=== PATIENT | female | born 1970 | race Caucasian/White ===

== ENCOUNTER 2022-08-05 13:17 | Inpatient (IN) | payer MEDICAID, SELFPAY ==
[2022-08-05 13:44] VITALS: BP 170/70; PULSE 105; RESP 23; TEMP 37.5; O2SAT 100; BMI 47.0
--- NOTE | 2022-08-05 16:12 | ED_ITS ---
HPI - General Adult General Chief complaint: Shortness of Breath/Dyspnea Stated complaint: water retention / Alcoholic Time Seen by Provider: 08/05/22 16:04 History of Present Illness HPI narrative: Pt states she is an alcoholic and has been drinking 5ths of vodka and 5ths of fireball would like treatment for alcoholism but also states she has a lot of water retention and her breathing is very hard. Fell on sister floor and couldn't get up for the longest time. Pt states she is achey all over but the worst part is her breathing. Mobility has decreased in last few months . She is asthmatic and doesn't have a rescue inhaler. Ran out of her water pills 3 weeks ago as well. Pt has increased nosebleeds with the increased drinking. 52-year-old woman presenting to the emergency department with increased difficulty breathing. Weakness as well. She notes rather significant, at this time and clarified, alcohol withdrawal requiring hospital admission. She had been sober until about 4 days ago and has been drinking vodka as noted above. She has been off of her medications she notes particularly water pills over the last 3 weeks. Has moved here from [place] and gotten a job. She had not manage to reestablish cares and notes that her primary clinic/provider will not provide refills. If she has been retaining a lot of water noting rather more remarkable weight gain. She notes a history of this in the past requiring hospital diuresis. Does have asthma and is out of these medications as well. She has been having nose bleed recurrent lay. She has nonspecific pain but is achy/sore all over. Did have a fall while coming out of the shower yesterday and laid on the ground for about 2 hours apparently. Did not hit her head. There was no loss of consciousness. It is 4:00 p.m. in the afternoon and last alcoholic drink was yesterday. Further questioning reveals that she has not been sober as long as I am initially understanding. Denies a history of alcohol withdrawal seizures. She has seen spots she says though in the past. Seems unfamiliar with a diagnosis of heart failure. Apparently has not retained fluid in the lungs per my initial questioning. She has however been heavily diuresed in ICU setting. Sounds like has had Bumex outpatient. Related Data Previous Rx's Medication Instructions Recorded acetaminophen 325 mg tablet 650 mg (2 x 325 mg) PO Q8H PRN #30 08/08/22 tabs albuterol sulfate 90 mcg/actuation 2 puff inhalation Q4H PRN #8.5 08/08/22 aerosol inhaler (Ventolin HFA) grams bumetanide 1 mg tablet 1 mg PO BID@09,14 #60 tabs 08/08/22 folic acid 1 mg tablet 1 mg PO DAILY #30 tabs 08/08/22 multivitamin with folic acid 400 1 tab PO DAILY #30 tabs 08/08/22 mcg tablet (Thera) omeprazole 20 mg capsule,delayed 40 mg (2 x 20 mg) PO DAILY@0700 08/08/22 release #30 caps ondansetron 4 mg disintegrating 4 mg PO Q6H PRN #20 tabs 08/08/22 tablet sennosides 8.6 mg-docusate sodium 1 tab PO DAILY PRN #30 tabs 08/08/22 50 mg tablet (Stool Softener-Laxative) spironolactone 25 mg tablet 50 mg (2 x 25 mg) PO DAILY #30 tabs 08/08/22 thiamine mononitrate (vit B1) 100 100 mg PO DAILY #30 tabs 08/08/22 mg tablet (Vitamin B-1 (mononitrate)) Allergies Allergy/AdvReac Type Severity Reaction Status Date / Time aspirin Allergy Severe Verified 08/06/22 15:44 codeine AdvReac Severe Anaphylaxis Verified 08/05/22 13:44 Review of Systems Status of ROS: Reports: 6 or more systems reviewed and unremarkable except as noted in History and below [facility] Medical History (Updated 08/12/22 @ 05:29 by Shayne Leos MD) Former smoker ?Z87.891 - Personal history of nicotine dependence (ICD-10) Obesity ?E66.9 - Obesity, unspecified (ICD-10) Vitamin D deficiency ?E55.9 - Vitamin D deficiency, unspecified (ICD-10) Anemia ?D64.9 - Anemia, unspecified (ICD-10) Edema ?R60.9 - Edema, unspecified (ICD-10) Alcoholism ?F10.20 - Alcohol dependence, uncomplicated (ICD-10) Surgical History (Updated 08/06/22 @ 09:10 by Aydee Amos MD) Previous section ?Z98.891 - History of uterine scar from previous surgery (ICD-10) Hx of cholecystectomy ?Z90.49 - Acquired absence of other specified parts of digestive tract (ICD- 10) H/O gastric bypass ?Z98.84 - Bariatric surgery status (ICD-10) Social History What is your current living situation: I presently have a place to live Problems where you live: no known problems Problems where you live details: denies In the past 12 months, utilities in danger of being shut off: no In the past 12 mos, have been you worried that your food would run out before you had money to buy more?: never true In the past 12 mos, the food you bought just didn't last and you didn't have money to buy more?: never true Highest level of school completed/degree received: some college, no degree Smoking Status: Current some day smoker What tobacco products do you use: cigarettes Do you use any of these nicotine containing products: None Second hand tobacco smoke exposure: No How often do you have a drink containing alcohol: 4 or more times a week Alcohol type details: pt states unable to answer as pt states she is sporadic with her drinking How many standard drinks containing alcohol do you have on a typical day: 5 or 6 How often do you have six or more drinks on one occasion: Daily or almost daily AUDIT-C Alcohol total score: 10 Non-prescribed substance use: denies use Caffeine: Yes (tea daily) How often does anyone, including family, friends and others, physically hurt you : How often does anyone, including family, friends and others, insult or talk down to you: How often does anyone, including family, friends and others, threaten you with harm: How often does anyone, including family, friends and others, scream or curse at you: service: No Exam Narrative: Exam Narrative: A pleasant. Fully alert. Head looks to be atraumatic. She does have small dried blood at the right nares of her nose. Cranial nerves 2-12 look to be intact. Voice is a little laryngitis. Oropharynx is sticky. She is partially edentulous. Lungs are I think clear maybe some trace basilar crepitus. Good air movement though. I do not hear any wheeze. Heart is elevated rate to tachycardic but in a regular rhythm. 2/6 systolic murmur Abdomen is quite obese soft and nontender. She has erythema though that lines up with the sweat pant line and goes distal. Not exactly cellulitic but this area is broadly faintly erythematous. I do not see cellulitic changes in the skin fold. Lower extremities are with severe tense edema. Pitting. No cellulitic changes though. I do not appreciate blistering either. Bags under her eyes. Const: Vital Signs, click to edit/add: Vital Signs - 24 hr 08/05/22 13:44 Temperature 99.5 F Pulse Rate [Right Pulse Oximeter] 105 H Respiratory Rate 23 Blood Pressure [Ri ght Upper Arm] 170/70 H Pulse Oximetry 100 Oxygen Delivery Me thod Room Air Documenting provider has reviewed patient's vital signs: yes Course Course Hospital Course: Cora is a 52-year-old female who presented to the hospital after a fall at home with resultant weakness, in the setting of alcohol overuse. Patient recently moved to the area and has been off her home medications, which included high-dose diuresis for chronic lower extremity edema. Admission imaging revealed no acute injuries, labs consistent with sequela of chronic alcohol use (thrombocytopenia, elevated AST, elevated bilirubin, elevated INR, anemia requiring transfusion of 1U PRBCs), improved during stay. Ultrasound c/w cirrhosis. Had fever x1 on 08/05, treated with Rocephin x2 days, discontinued given reassuring clinical picture. Labs remained stable and BCx NGTD. Diuretics restarted (discharging on Bumex 1mg BID and Spironolactone 50mg Qd) and Cora diuresed well with stable electrolytes. She is down 6kg upon discharge. Patient medically appropriate for discharge on 08/09: accepted at [facility] in [place], [place]; sister will transport her there upon discharge this morning. Recommend close PCP f/u locally with GI referral upon discharge from treatment. Vital Signs Vital signs: Initial Vital Signs Temperature 99.5 F 08/05/22 13:44 Temperature Source Temporal Artery Scan 08/05/22 13:44 Pulse Rate 105 H 08/05/22 13:44 Pulse Rhythm Regular 08/05/22 13:44 Pulse Strength 3+ Normal 08/05/22 13:44 Respiratory Rate 23 08/05/22 13:44 Blood Pressure 170/70 H 08/05/22 13:44 Blood Pressure Mean 103 08/05/22 13:44 Blood Pressure Position Sitting 08/05/22 13:44 Pulse Oximetry 100 08/05/22 13:44 Oxygen Delivery Method Room Air 08/05/22 13:44 Vital Signs Temperature 99.5 F 08/05/22 13:44 Pulse Rate 105 H 08/05/22 13:44 Respiratory Rate 23 08/05/22 13:44 Blood Pressure 170/70 H 08/05/22 13:44 Pulse Oximetry 100 08/05/22 13:44 Oxygen Delivery Method Room Air 08/05/22 13:44 Temperature 97.7 F 08/09/22 07:37 Pulse Rate 71 08/09/22 07:37 Respiratory Rate 16 08/09/22 07:37 Blood Pressure 112/44 L 08/09/22 07:37 Pulse Oximetry 95 08/09/22 07:37 Oxygen Delivery Method Room Air 08/09/22 07:37 Medical Decision Making MDM Narrative Medical decision making narrative: I think given degree of retention already compromising mobility might benefit at a minimum from this and possibly alcohol withdrawal though only drinking for 4 days, to be hospitalized for assistance with diuresis and mobility. I do not believe knees warrant imaging at this time. CPK is elevated at 719. Perhaps consistent with down time and/or more induced metabolic instability. Discussed hospitalization with hospitalist. Medical Records Medical records reviewed: Yes I reviewed the patient's medical records Lab Data Lab results reviewed: Yes I reviewed the patient's lab results Labs: Lab Results 08/05/22 08/05/22 08/05/22 Range/Units 17:00 17:00 17:00 WBC 5.97 (4.50-11.00) K/uL RBC 3.35 L (4.00-5.20) m/uL Hgb 8.3 L (12.0-16.0) gm/dL Hct 27.4 L (33.0-51.0) % MCV 82 (80-100) fL MCH 25 L (26-34) pg MCHC 30 L (32-36) gm/dL RDW Coeff of Leanne 20.6 H (11.5-15.5) % Plt Count 78 L (140-440) K/uL Neut % (Auto) 68.2 (42.0-72.0) % Lymph % (Auto) 24.0 (20-44) % Glascock % (Auto) 5.9 (0.0-11.0) % Eos % (Auto) 0.7 (0.0-7.0) % Baso % (Auto) 0.7 (0.0-3.0) % Neut # (Auto) 4.08 (1.7-7.0) K/uL Lymph # (Auto) 1.43 (0.90-2.90) K/uL Glascock # (Auto) 0.40 (0.00-0.90) K/UL Eos # (Auto) 0.04 (0.00-0.50) K/uL Baso # (Auto) 0.04 (0.00-0.30) K/uL INR 1.76 H (0.91-1.10) APTT 44 H (23-33) Seconds Sodium 138 (135-149) mmol/L Potassium 3.5 L (3.6-5.1) mmol/L Chloride 108 (96-114) mmol/L Carbon Dioxide 23 (20-32) mmol/L BUN 12 (7-30) mg/dL Creatinine 0.6 (0.5-1.5) mg/dL Estimated Creat Clear 109.08 Estimated GFR 109 ml/min Glucose 104 (60-115) mg/dL Lactate 3.4 H (0.5-1.9) mmol/L Calcium 8.5 (8.4-10.6) mg/dL Magnesium 1.7 Cancelled (1.5-2.6) mg/dL Total Bilirubin 4.9 H Cancelled (0.1-1.5) mg/dL Direct Bilirubin 0.9 H (0.0-0.5) mg/dL AST (12-35) U/L ALT (4-35) U/L Alkaline Phosphatase (40-150) U/L Total Creatine Kinase Troponin I (0.01-0.04) ng/mL C-Reactive Protein (0.5-1.0) mg/dL NT-Pro-B Natriuret Pep pg/mL Total Protein (6.0-8.3) g/dL Albumin (3.3-5.0) g/dL Vitamin B12 TSH (0.270-4.20) uIU/mL Ethyl Alcohol (0.01-0.03) % Lab Acknowledgement 08/05/22 08/05/22 08/05/22 Range/Units 17:00 17:00 17:00 WBC (4.50-11.00) K/uL RBC (4.00-5.20) m/uL Hgb (12.0-16.0) gm/dL Hct (33.0-51.0) % MCV (80-100) fL MCH (26-34) pg MCHC (32-36) gm/dL RDW Coeff of Leanne (11.5-15.5) % Plt Count (140-440) K/uL Neut % (Auto) (42.0-72.0) % Lymph % (Auto) (20-44) % Glascock % (Auto) (0.0-11.0) % Eos % (Auto) (0.0-7.0) % Baso % (Auto) (0.0-3.0) % Neut # (Auto) (1.7-7.0) K/uL Lymph # (Auto) (0.90-2.90) K/uL Glascock # (Auto) (0.00-0.90) K/UL Eos # (Auto) (0.00-0.50) K/uL Baso # (Auto) (0.00-0.30) K/uL INR (0.91-1.10) APTT (23-33) Seconds Sodium (135-149) mmol/L Potassium (3.6-5.1) mmol/L Chloride (96-114) mmol/L Carbon Dioxide (20-32) mmol/L BUN (7-30) mg/dL Creatinine (0.5-1.5) mg/dL Estimated Creat Clear Estimated GFR ml/min Glucose (60-115) mg/dL Lactate (0.5-1.9) mmol/L Calcium (8.4-10.6) mg/dL Magnesium (1.5-2.6) mg/dL Total Bilirubin (0.1-1.5) mg/dL Direct Bilirubin Cancelled (0.0-0.5) mg/dL AST 119 H Cancelled (12-35) U/L ALT 39 H Cancelled (4-35) U/L Alkaline Phosphatase 166 H (40-150) U/L Total Creatine Kinase Troponin I (0.01-0.04) ng/mL C-Reactive Protein (0.5-1.0) mg/dL NT-Pro-B Natriuret Pep pg/mL Total Protein (6.0-8.3) g/dL Albumin (3.3-5.0) g/dL Vitamin B12 TSH (0.270-4.20) uIU/mL Ethyl Alcohol (0.01-0.03) % Lab Acknowledgement 08/05/22 08/05/22 08/05/22 Range/Units 17:00 17:00 17:00 WBC (4.50-11.00) K/uL RBC (4.00-5.20) m/uL Hgb (12.0-16.0) gm/dL Hct (33.0-51.0) % MCV (80-100) fL MCH (26-34) pg MCHC (32-36) gm/dL RDW Coeff of Leanne (11.5-15.5) % Plt Count (140-440) K/uL Neut % (Auto) (42.0-72.0) % Lymph % (Auto) (20-44) % Glascock % (Auto) (0.0-11.0) % Eos % (Auto) (0.0-7.0) % Baso % (Auto) (0.0-3.0) % Neut # (Auto) (1.7-7.0) K/uL Lymph # (Auto) (0.90-2.90) K/uL Glascock # (Auto) (0.00-0.90) K/UL Eos # (Auto) (0.00-0.50) K/uL Baso # (Auto) (0.00-0.30) K/uL INR (0.91-1.10) APTT (23-33) Seconds Sodium (135-149) mmol/L Potassium (3.6-5.1) mmol/L Chloride (96-114) mmol/L Carbon Dioxide (20-32) mmol/L BUN (7-30) mg/dL Creatinine (0.5-1.5) mg/dL Estimated Creat Clear Estimated GFR ml/min Glucose (60-115) mg/dL Lactate (0.5-1.9) mmol/L Calcium (8.4-10.6) mg/dL Magnesium (1.5-2.6) mg/dL Total Bilirubin (0.1-1.5) mg/dL Direct Bilirubin (0.0-0.5) mg/dL AST (12-35) U/L ALT (4-35) U/L Alkaline Phosphatase Cancelled (40-150) U/L Total Creatine Kinase Cancelled 713 H Troponin I 0.03 (0.01-0.04) ng/mL C-Reactive Protein 0.9 (0.5-1.0) mg/dL NT-Pro-B Natriuret Pep 857 Cancelled pg/mL Total Protein 7.9 (6.0-8.3) g/dL Albumin (3.3-5.0) g/dL Vitamin B12 TSH (0.270-4.20) uIU/mL Ethyl Alcohol (0.01-0.03) % Lab Acknowledgement 08/05/22 08/05/22 08/05/22 Range/Units 17:00 17:00 17:00 WBC (4.50-11.00) K/uL RBC (4.00-5.20) m/uL Hgb (12.0-16.0) gm/dL Hct (33.0-51.0) % MCV (80-100) fL MCH (26-34) pg MCHC (32-36) gm/dL RDW Coeff of Leanne (11.5-15.5) % Plt Count (140-440) K/uL Neut % (Auto) (42.0-72.0) % Lymph % (Auto) (20-44) % Glascock % (Auto) (0.0-11.0) % Eos % (Auto) (0.0-7.0) % Baso % (Auto) (0.0-3.0) % Neut # (Auto) (1.7-7.0) K/uL Lymph # (Auto) (0.90-2.90) K/uL Glascock # (Auto) (0.00-0.90) K/UL Eos # (Auto) (0.00-0.50) K/uL Baso # (Auto) (0.00-0.30) K/uL INR (0.91-1.10) APTT (23-33) Seconds Sodium (135-149) mmol/L Potassium (3.6-5.1) mmol/L Chloride (96-114) mmol/L Carbon Dioxide (20-32) mmol/L BUN (7-30) mg/dL Creatinine (0.5-1.5) mg/dL Estimated Creat Clear Estimated GFR ml/min Glucose (60-115) mg/dL Lactate (0.5-1.9) mmol/L Calcium (8.4-10.6) mg/dL Magnesium (1.5-2.6) mg/dL Total Bilirubin (0.1-1.5) mg/dL Direct Bilirubin (0.0-0.5) mg/dL AST (12-35) U/L ALT (4-35) U/L Alkaline Phosphatase (40-150) U/L Total Creatine Kinase Troponin I (0.01-0.04) ng/mL C-Reactive Protein (0.5-1.0) mg/dL NT-Pro-B Natriuret Pep pg/mL Total Protein Cancelled (6.0-8.3) g/dL Albumin 3.8 Cancelled (3.3-5.0) g/dL Vitamin B12 Cancelled TSH 2.050 (0.270-4.20) uIU/mL Ethyl Alcohol 0.15 H Cancelled (0.01-0.03) % Lab Acknowledgement Test Added 08/05/22 Range/Units 17:38 WBC (4.50-11.00) K/uL RBC (4.00-5.20) m/uL Hgb (12.0-16.0) gm/dL Hct (33.0-51.0) % MCV (80-100) fL MCH (26-34) pg MCHC (32-36) gm/dL RDW Coeff of Leanne (11.5-15.5) % Plt Count (140-440) K/uL Neut % (Auto) (42.0-72.0) % Lymph % (Auto) (20-44) % Glascock % (Auto) (0.0-11.0) % Eos % (Auto) (0.0-7.0) % Baso % (Auto) (0.0-3.0) % Neut # (Auto) (1.7-7.0) K/uL Lymph # (Auto) (0.90-2.90) K/uL Glascock # (Auto) (0.00-0.90) K/UL Eos # (Auto) (0.00-0.50) K/uL Baso # (Auto) (0.00-0.30) K/uL INR (0.91-1.10) APTT (23-33) Seconds Sodium (135-149) mmol/L Potassium (3.6-5.1) mmol/L Chloride (96-114) mmol/L Carbon Dioxide (20-32) mmol/L BUN (7-30) mg/dL Creatinine (0.5-1.5) mg/dL Estimated Creat Clear Estimated GFR ml/min Glucose (60-115) mg/dL Lactate (0.5-1.9) mmol/L Calcium (8.4-10.6) mg/dL Magnesium (1.5-2.6) mg/dL Total Bilirubin (0.1-1.5) mg/dL Direct Bilirubin (0.0-0.5) mg/dL AST (12-35) U/L ALT (4-35) U/L Alkaline Phosphatase (40-150) U/L Total Creatine Kinase Troponin I (0.01-0.04) ng/mL C-Reactive Protein (0.5-1.0) mg/dL NT-Pro-B Natriuret Pep pg/mL Total Protein (6.0-8.3) g/dL Albumin (3.3-5.0) g/dL Vitamin B12 TSH (0.270-4.20) uIU/mL Ethyl Alcohol (0.01-0.03) % Lab Acknowledgement Test Added Discharge Plan Discharge Clinical Impression: Alcohol dependence, Alcohol abuse, Edema, Impaired mobility, Dehydration Patient Disposition: Admitted As Inpatient Condition: Improved Activity Level: Activity as Tolerated and No strenuous activity Discharge Diet: 2 gm Sodium
--- NOTE | 2022-08-05 16:23 | CRLHL7_ITS ---
For Patients: As a result of the Century Cures Act, medical imaging exams and procedure reports are released immediately into your electronic medical record. You may view this report before your referring provider. If you have questions, please contact your health care provider. INDICATION: Dyspnea. TECHNIQUE: AP portable chest. COMPARISON: None. FINDINGS: Overall heart size is mildly enlarged likely accentuated by the portable technique. Mildly prominent central pulmonary arteries could also be secondary to hypoventilation. No focal consolidation or infiltrate. No pneumothorax. No definite effusion. IMPRESSION: Mildly prominent cardiac silhouette and central pulmonary arteries may be more technical than real. No convincing evidence for active congestive heart failure or active pneumonia. Dictated by Remi Sanders MD @ 08/05/2022 5:00:13 PM (Electronically Signed)
[2022-08-05 17:09] LABS: Lactate* 3.4 mmol/L (0.5-1.9)
[2022-08-05 17:11] LABS: Basophils Absolute Auto 0.04 K/uL (0.00-0.30); Basophils Percent Auto 0.7 % (0.0-3.0); Eosinophils Absolute Auto 0.04 K/uL (0.00-0.50); Eosinophils Percent Auto 0.7 % (0.0-7.0); Hematocrit 27.4 % (33.0-51.0); Hemoglobin* 8.3 gm/dL (12.0-16.0); Immature Granulocytes Abs Auto 0.03 K/uL (0.00-0.30); Immature Granulocytes Pct Auto 0.5 %; Lymphocytes Absolute Auto 1.43 K/uL (0.90-2.90); Mean Corpuscular HGB Conc 30 gm/dL (32-36); Mean Corpuscular Hemoglobin 25 pg (26-34); Mean Corpuscular Volume 82 fL (80-100); Monocytes Percent Auto 5.9 % (0.0-11.0); Neutrophils Absolute Auto 4.08 K/uL (1.7-7.0); Neutrophils Percent Auto 68.2 % (42.0-72.0); Platelet Count* 78 K/uL (140-440); RDW Coefficient of Variation % 20.6 % (11.5-15.5); Red Blood Count 3.35 m/uL (4.00-5.20); White Blood Count* 5.97 K/uL (4.50-11.00)
[2022-08-05 17:22] LABS: Slide Review Reflex No
[2022-08-05 17:27] LABS: Albumin* 3.8 g/dL (3.3-5.0); Chloride* 108 mmol/L (96-114)
[2022-08-05 17:28] LABS: Potassium* 3.5 mmol/L (3.6-5.1); Sodium* 138 mmol/L (135-149)
[2022-08-05 17:30] LABS: Alkaline Phosphatase* 166 U/L (40-150); Aspartate Amino Transferase* 119 U/L (12-35); Bilirubin Direct* 0.9 mg/dL (0.0-0.5); Bilirubin Total* 4.9 mg/dL (0.1-1.5); Blood Urea Nitrogen* 12 mg/dL (7-30); Carbon Dioxide* 23 mmol/L (20-32); Creatine Kinase* 713 U/L (41-117); Creatinine* 0.6 mg/dL (0.5-1.5); Est. Creatinine Clearance* 109.08; Estimated Glomerular Filt Rate 109 ml/min; Total Protein* 7.9 g/dL (6.0-8.3)
[2022-08-05 17:31] LABS: Alanine Aminotransferase* 39 U/L (4-35); Calcium* 8.5 mg/dL (8.4-10.6); Ethanol* 0.15 % (0.01-0.03); Glucose* 104 mg/dL (60-115); Magnesium* 1.7 mg/dL (1.5-2.6)
[2022-08-05 17:33] LABS: C Reactive Protein* 0.9 mg/dL (0.5-1.0)
[2022-08-05 17:47] LABS: NT Pro B Type NatriureticPept* 857 pg/mL
[2022-08-05] MEDS: FUROSEMIDE 10 MG/ML inj 40 MG IVP (18:02)
[2022-08-05 18:10] LABS: INR 1.76 (0.91-1.10); Prothrombin Time 21.4 Seconds
[2022-08-05 18:11] LABS: Partial Thromboplastin Time* 44 Seconds (23-33)
[2022-08-05] MEDS: LORazepam 2 MG/ML inj 1 MG IVP (18:23)
[2022-08-05 18:39] VITALS: BP 132/74; PULSE 89; RESP 24; TEMP 36.3; O2SAT 96
[2022-08-05 18:47] VITALS: BP 173/70; RESP 24; TEMP 36.6; O2SAT 96; BMI 49.6
--- NOTE | 2022-08-05 19:19 | PM.IMHP1 ---
Hospitalist- H&P: HPI History of Present Illness Time Seen by Provider: 18:00 Date Seen: 08/05/22 Chief complaint: Dyspnea, edema, alcoholism Narrative: Cora Marte is a 52 year old woman with longstanding alcoholism who presents to emergency department for assessment of increasing sense of dyspnea, edema, weight gain. She guesses that she may have gained as much as 100 lb in the last several days. It is unclear to me if her estimate is accurate. She would like to achieve sobriety so she can participate in an inpatient chemical dependency treatment program called [facility], in [place]. She tells me that historically she has been hospitalized and treated with diuretics in the hospital. When discharged from the hospital she has been on diuretics, Bumex. She is uncertain of the dose of her Bumex. She ran out of her prescription medications, including the Bumex and albuterol metered-dose inhaler, 3 weeks ago. The weight gain and dyspnea have been more pronounced over the last few days. Previously lived in the [facility]. Moved to [facility] to be closer to her sister, get a job, and try to start a new life. Has not established relationship with a physician since moving to [place]. She indicates that she has been sober up until 4 days ago. She states she started to drink fire balls. Has been inebriated since. Her last drink supposedly was last night. Blood alcohol level here in the emergency department is 0.15. She is awake, interactive, and having an articulate, meaningful conversation with this blood alcohol level. Patient is said to have asthma. Still smoking half pack per day of cigarettes. No worsening of cough. Denies paroxysmal nocturnal dyspnea or orthopnea. Denies chest heaviness, pressure, tightness, or pain. Denies palpitations or chest fluttering. Review of Systems Status of ROS: Reports: 10 or more systems reviewed and unremarkable except as noted in History and below Narrative: Denies fevers, rigors, diaphoresis. Has had generalized myalgias and arthralgias particularly of her knees. Did have a fall yesterday coming out of the shower. Was on the floor for period of time. Was unable to get up for about 2 hours. Denies striking her head. Denies loss of consciousness. Claims last alcoholic beverage intake was around 4:00 p.m. yesterday. Only recently has she been more weak with an unsteady gait. She claims that ordinarily this is not a concern for her. Has had prior alcohol withdrawals, minor. Denies prior delirium tremens or seizures. She is not very specific to me at all for the amount of alcohol that she has been consuming. Does tell me that historically she has consumed large quantities of vodka and whiskey fire balls. She readily acknowledges that the skin around her eyes has been more yellow over the last week. She believes she has never been told that she has cirrhosis. Had brief, intermittent episodes of epistaxis for the last 3-4 days which has since resolved. Had no other blood loss until she urinated while in the emergency department and believes that she had some blood in her urine. Does not take any anti thrombotic agents including aspirin. Denies taking any anticoagulants. Denies nausea, vomiting, dysphagia, odynophagia. Denies abdominal pain. Denies diarrhea or constipation. Denies dysuria, urgency, frequency. Did have the episode of hematuria today while in the emergency department. This is new. No open sores on her skin. Designates her sister, Kim, as her spokesperson and decision maker in the event she is not able to speak on her own behalf and make her own healthcare decisions. At his cell phone number is [phone]. Patient requests full resuscitation in the event of cardiopulmonary demise. [facility] Medical History Obesity ?E66.9 - Obesity, unspecified (ICD-10) Vitamin D deficiency ?E55.9 - Vitamin D deficiency, unspecified (ICD-10) Anemia ?D64.9 - Anemia, unspecified (ICD-10) Edema ?R60.9 - Edema, unspecified (ICD-10) Tobacco dependence ?F17.200 - Nicotine dependence, unspecified, uncomplicated (ICD-10) Alcoholism ?F10.20 - Alcohol dependence, uncomplicated (ICD-10) Social History Smoking Status: Former smoker Do you use any of these nicotine containing products: None Second hand tobacco smoke exposure: No How often do you have a drink containing alcohol: 4 or more times a week How many standard drinks containing alcohol do you have on a typical day: 5 or 6 How often do you have six or more drinks on one occasion: Daily or almost daily AUDIT-C Alcohol total score: 10 Non-prescribed substance use: denies use service: No Meds Home Medications and Allergies Home Medication Comments: Obtains her prescription medications at a [facility] pharmacy. Ordinarily takes Bumex, she is uncertain of the dose. Has not had any for about 3 weeks. Ordinarily uses albuterol metered-dose inhaler. Has not had any for about 3 weeks. Takes jyuf-uud-[id number] iron supplement. Takes tauw-thq-[id number] vitamin-D supplement. Takes [id number]-[id number] vitamin B supplement. Allergies Allergy/AdvReac Type Severity Reaction Status Date / Time codeine AdvReac Severe Anaphylaxis Verified 08/05/22 13:44 aspirin AdvReac Severe Uncoded 08/05/22 13:44 Exam Narrative: Exam Narrative: Awake, alert, oriented to self, place, time, situation. This is quite remarkable for her blood alcohol level is 0.15. Articulate and cooperative. Appears her nystatin in her stated desire for help. Vision and hearing are grossly normal. Has icterus. Minimal heel of jaundice. Spider angiomata on face, neck, chest, back. External auditory canals are clear with normal tympanic membranes. Multiple missing teeth. Only has a few remaining teeth. Dentition in poor repair. Dry buccal mucosa. Minimal amount of dry, crusted blood around the right nares. No active bleeding. Nasal septum is deviated. Neck is supple. Midline trachea. No obvious JVD or hepatojugular reflux. No carotid bruits. No adenopathy of head and neck. Lungs clear to auscultation after coughing and clearing her throat. No wheezing or rhonchi. Heart tones with regular rhythm, normal S1-S2. Loud systolic murmur across precordium radiating to both axilla. Obese abdomen. Active bowel sounds. Soft abdomen. Hepatomegaly. Edema to bilateral lower extremities. Contusions on lower extremities noted. Does move her joints however. Transfers and ambulates with standby assist. Has broad-based gait. Minimal tremor. No asterixis. Has a Bonacini cirrhosis discriminant score of 10, which is greater than 7 and suggests high likelihood for cirrhosis: Platelet count of 78, 5 points; ALT/AST of 39/119= 0.3, 3 points; INR of 1.78, 2 points. Const: Vital Signs, click to edit/add: Vital Signs - 24 hr 08/05/22 13:44 08/05/22 18:39 08/05/22 18:47 Temperature 99.5 F 97.4 F L 97.9 F Pulse Rate [Right Pulse Oximeter] 105 H 89 Respiratory Rate 23 24 24 Blood Pressure [Le ft Arm] 173/70 H Blood Pressure [Ri ght Upper Arm] 170/70 H 132/74 Pulse Oximetry 100 96 96 Oxygen Delivery Me thod Room Air Room Air Room Air 08/05/22 18:47 Temperature Pulse Rate [Right Pulse Oximeter] Respiratory Rate 24 Blood Pressure [Le ft Arm] Blood Pressure [Ri ght Upper Arm] Pulse Oximetry 96 Oxygen Delivery Me thod Room Air Hospitalist - H&P: Result Labs Labs: Short CBC 08/05/22 Range/Units 17:00 WBC 5.97 (4.50-11.00) K/uL Hgb 8.3 L (12.0-16.0) gm/dL Hct 27.4 L (33.0-51.0) % Plt Count 78 L (140-440) K/uL BMP 08/05/22 17:00 Sodium 138 Potassium 3.5 L Chloride 108 Carbon Dioxide 23 BUN 12 Creatinine 0.6 Glucose 104 Calcium 8.5 Cardiac Enzymes 08/05/22 08/05/22 Range/Units 17:00 17:00 Total Creatine Kinase Cancelled 713 H Liver Function 08/05/22 08/05/22 08/05/22 Range/Units 17:00 17:00 17:00 Total Bilirubin 4.9 H Cancelled (0.1-1.5) mg/dL Direct Bilirubin 0.9 H Cancelled (0.0-0.5) mg/dL AST 119 H (12-35) U/L ALT (4-35) U/L Alkaline Phosphatase (40-150) U/L Albumin (3.3-5.0) g/dL 08/05/22 08/05/22 08/05/22 Range/Units 17:00 17:00 17:00 Total Bilirubin (0.1-1.5) mg/dL Direct Bilirubin (0.0-0.5) mg/dL AST Cancelled (12-35) U/L ALT 39 H Cancelled (4-35) U/L Alkaline Phosphatase 166 H Cancelled (40-150) U/L Albumin 3.8 (3.3-5.0) g/dL 08/05/22 Range/Units 17:00 Total Bilirubin (0.1-1.5) mg/dL Direct Bilirubin (0.0-0.5) mg/dL AST (12-35) U/L ALT (4-35) U/L Alkaline Phosphatase (40-150) U/L Albumin Cancelled (3.3-5.0) g/dL Imaging Chest x-ray: Attestation: I have reviewed the pertinent imaging results. Radiologist's impression: IMPRESSION: Mildly prominent cardiac silhouette and central pulmonary arteries may be more technical than real. No convincing evidence for active congestive heart failure or active pneumonia. Assessment and Plan Assessment and plan (1) Dyspnea: Problem comment: Etiology not yet determined. Likely multifactorial. Loud heart murmur is significant. History of asthma, ongoing tobacco smoking, and report of increased edema or all significant. Status: Acute (2) Cirrhosis of liver: Problem comment: Bonacini cirrhosis discriminant score of 10, therefore high likelihood of cirrhosis. Spider angiomata and icterus on physical exam. Status: Acute (3) Alcoholism: Status: Acute (4) Mild epistaxis: Status: Acute (5) Hematuria: Status: Acute (6) Weakness: Status: Acute (7) Unstable gait: Status: Acute (8) Fall: Status: Acute (9) Rhabdomyolysis: Status: Acute (10) Heart murmur: Status: Acute (11) Thrombocytopenia: Status: Acute (12) Abnormal INR: Status: Acute (13) Anemia: Problem comment: Ordinarily takes ycjh-tdy-tgqvtvc iron supplements Status: Acute Plan 1. Reviewed impression with patient and her sister Kim. 2. Her cirrhosis seems quite advanced. Need to further characterize this. Will monitor serial labs. Will obtain abdominal ultrasound. If she does have ascites will need to monitor her temperature closely for possible spontaneous bacterial peritonitis. Should she spike a fever may need to obtain diagnostic paracentesis and initiate her on appropriate IV antibiotics. 3. Diuresis was initiated in the emergency department with furosemide 40 mg IV. Will monitor I's and O's and daily weights. 4. Monitor creatine kinase levels and kidney function closely. For now and hold off on adding IV fluids. 5. Physical therapy, occupational therapy, social media strategist consultation. Patient hoping to get into [facility] inpatient chemical dependency treatment program. 6. Nutritional consultation. 7. Blood cultures obtained. 8. Check urine culture. Check urine for toxicology. 9. [facility] protocol for alcohol withdrawal. 10. Will ask lab to run vitamin B12 and folate levels. Initiate multivitamin, folate, thiamin supplementation. 11. Nicotine patch and Nicotrol inhaler. Albuterol metered-dose inhaler as needed. 12. Telemetry, electrocardiogram, echocardiogram. 13. Patient is sister agreeable with above stated plans and recommendations.
--- NOTE | 2022-08-05 19:38 | CRLHL7_ITS ---
For Patients: As a result of the Cures Act, medical imaging exams and procedure reports are released immediately into your electronic medical record. You may view this report before your referring provider. If you have questions, please contact your health care provider. Indication: Trauma. Technique: Right knee, 2 views. Comparison: None. Findings/Impression: Bones: Alignment is normal. No fractures or bone lesions. No sign of acute injury. Joint spaces: Minimal degenerative changes.. Soft tissues: Unremarkable. Dictated by Rebecca Graham MD @ 08/05/2022 8:39:57 PM (Electronically Signed)
--- NOTE | 2022-08-05 19:38 | CRLHL7_ITS ---
For Patients: As a result of the Cures Act, medical imaging exams and procedure reports are released immediately into your electronic medical record. You may view this report before your referring provider. If you have questions, please contact your health care provider. Indication: Trauma. Technique: Left knee, 2 views. Comparison: None. Findings: Bones: Alignment is normal. No fractures or bone lesions. Joint spaces: Moderate suprapatellar effusion. Mild tricompartment degenerative changes.. Soft tissues: Soft tissue swelling surrounding the knee.. Dictated by Rebecca Graham MD @ 08/05/2022 8:39:12 PM (Electronically Signed)
[2022-08-05 20:03] LABS: Troponin I* 0.03 ng/mL (0.01-0.04)
[2022-08-05] MEDS: ACETAMINOPHEN 325 MG TABLET 650 MG PO (20:36)
[2022-08-05] MEDS: POTASSIUM BICARB 25 MEQ EFFERVESCENT TAB 50 MEQ PO (20:37)
[2022-08-05 21:00] VITALS: PULSE 90; RESP 20; O2SAT 98
[2022-08-05 21:16] LABS: Appearance Urine Clear (Clear); Bilirubin Urine Negative (Negative); Blood Urine Negative (Negative); Color Urine Dark yellow (Yellow); Glucose Urine Negative (Negative); Ketones Urine Negative (Negative); Leukocyte Esterase Urine Negative (Negative); Nitrite Urine Negative (Negative); Protein Urine Negative (Negative); pH Urine 5.5 (5.0-8.5)
[2022-08-05 21:25] LABS: RBC Urine 0-2 (0-2); Squamous Epithelial Cell Urine Few (None-Few); WBC Urine 0-2 (0-5)
[2022-08-05 21:27] LABS: Amphetamine Screen Urine Negative (Negative); Barbiturate Screen Urine Negative (Negative); Benzodiazepines Screen Urine Negative (Negative); Cannabinoid Screen Urine Negative (Negative); Cocaine Screen Urine Negative (Negative); Methadone Screen Urine Negative (Negative); Methamphetamines Screen Urine Negative (Negative); Opiate Screen Urine Negative (Negative); Oxycodone Screen Urine Negative (Negative); Phencyclidine Screen Urine Negative (Negative); Tricyclic Antidepressant Urine Negative (Negative)
[2022-08-05] MEDS: SODIUM CHLORIDE 0.9 % (FLUSH) 10 ML SYRINGE 5 ML IVF (21:28)
[2022-08-05] MEDS: THIAMINE 250 MG in 0.9 % SODIUM CHLORIDE 100 ml 100 ML 102.5 MG IVPB (21:28)
[2022-08-05] MEDS: ALBUTEROL INHALER 2 PUFF IH (21:29)
[2022-08-05 21:45] VITALS: PULSE 92
[2022-08-05 21:52] LABS: Lab Add On Test New Spec Needed
[2022-08-05 22:00] VITALS: BP 152/63; PULSE 94; RESP 22; TEMP 38.2; O2SAT 95
--- NOTE | 2022-08-05 22:47 | PC.NURSE ---
End of shift nursing note, care provided from [id number]. Pt alert and oriented, sleepy in evening, stating she wants to rest. Pt up w/ SBA to restroom to void a few times in evening, as pt had lasix in ED. UA sent, blood work obtained per order. Pt's sister at bedside visiting briefly in alex. Vitals stable, exception of temp of 100.8 around 2200, charge updated, pt already received PRN Tylenol for bilateral knee pain from recent reported fall at home. Cool wash cloth placed to pt's forehead. Xray of knees done this evening. Echo and EKG ordered for tomorrow AM, as well as abd US. On CIWA protocol scoring 2-3. Pt request EDDIE wraps to BLE be removed in evening stating they were way too tight, removed and legs elevated on pillows for edema. PRN albuterol inhaler admin per pt request of SOB, con't on RA sating mid to high 90s%. Tele ordered this evening, NSR. Pt has bed alarm on for safety promotion, has been calling appropriately thus far, call light within pt reach.
[2022-08-05 23:59] LABS: Vitamin B12* 809 pg/mL (243-894)
[2022-08-06] VITALS (19 sets, daily range): BP systolic 113–160; BP diastolic 51–83; PULSE 74–97; RESP 18–24; TEMP 36.6–37.8; O2SAT 95–100; BMI 49.6
[2022-08-06] MEDS: MELATONIN 3 MG TABLET 6 MG PO (02:11)
--- NOTE | 2022-08-06 05:47 | PC.NURSE ---
23-07: Pt c/o headache most of the shift even after tylenol, ice to neck, cold washcloth, caffiene, aromatherapy resting patch, resting off/on, up twice to br, ciwas minimal <3, c/o leg cramps thus fareed wraps/scds removed, tele nsr, temp remains 100 other vss on ra, output 400cc
[2022-08-06] MEDS: OMEPRAZOLE 20 MG CAPSULE DR 40 MG PO (06:01)
[2022-08-06] MEDS: ACETAMINOPHEN 325 MG TABLET 650 MG PO ×2 (06:02→22:23)
[2022-08-06] MEDS: ALBUTEROL INHALER 2 PUFF IH ×2 (06:52→14:48)
[2022-08-06 07:03] LABS: HCO3 VBG 27 mmol/L (21-28); Lactate* 1.4 mmol/L (0.5-1.9); PCO2 VBG 37 mmHG (40-50); PO2 VBG 58.5 mmHG (25-47); pH VBG 7.465 (7.32-7.43)
[2022-08-06 07:06] LABS: Basophils Absolute Auto 0.03 K/uL (0.00-0.30); Basophils Percent Auto 0.6 % (0.0-3.0); Eosinophils Absolute Auto 0.08 K/uL (0.00-0.50); Eosinophils Percent Auto 1.7 % (0.0-7.0); Immature Granulocytes Abs Auto 0.01 K/uL (0.00-0.30); Immature Granulocytes Pct Auto 0.2 %; Lymphocytes Absolute Auto 1.53 K/uL (0.90-2.90); Lymphocytes Percent Auto 31.7 % (20-44); Mean Corpuscular HGB Conc 30 gm/dL (32-36); Mean Corpuscular Hemoglobin 25 pg (26-34); Mean Corpuscular Volume 82 fL (80-100); Monocytes Percent Auto 8.1 % (0.0-11.0); Neutrophils Absolute Auto 2.78 K/uL (1.7-7.0); Neutrophils Percent Auto 57.7 % (42.0-72.0); Platelet Count* 71 K/uL (140-440); RDW Coefficient of Variation % 20.6 % (11.5-15.5); Red Blood Count 3.06 m/uL (4.00-5.20); White Blood Count* 4.82 K/uL (4.50-11.00)
[2022-08-06 07:23] LABS: Hemoglobin* 7.5 gm/dL (12.0-16.0)
[2022-08-06 07:33] LABS: Prothrombin Time 22.8 Seconds
[2022-08-06 07:38] LABS: Iron* 222 ug/dL (37-170)
[2022-08-06 07:39] LABS: Chloride* 105 mmol/L (96-114)
[2022-08-06 07:40] LABS: Albumin* 3.3 g/dL (3.3-5.0); Sodium* 134 mmol/L (135-149)
[2022-08-06 07:41] LABS: Potassium* 3.6 mmol/L (3.6-5.1)
[2022-08-06 07:42] LABS: Creatinine* 0.5 mg/dL (0.5-1.5); Estimated Glomerular Filt Rate 114 ml/min
[2022-08-06 07:43] LABS: Alkaline Phosphatase* 146 U/L (40-150); Aspartate Amino Transferase* 104 U/L (12-35); Bilirubin Direct* 0.8 mg/dL (0.0-0.5); Bilirubin Total* 4.8 mg/dL (0.1-1.5); Blood Urea Nitrogen* 12 mg/dL (7-30); Carbon Dioxide* 25 mmol/L (20-32); Lipase* 113 U/L (23-300); Total Protein* 7.1 g/dL (6.0-8.3)
[2022-08-06 07:44] LABS: Alanine Aminotransferase* 37 U/L (4-35); Calcium* 8.3 mg/dL (8.4-10.6); Cholesterol* 181 mg/dL (90-199); Glucose* 110 mg/dL (60-115); HDL Cholesterol* 67 mg/dL (>=50); LDL Cholesterol Calculated 93 mg/dL (<100); Magnesium* 1.7 mg/dL (1.5-2.6); Phosphorus* 3.2 mg/dL (2.5-4.5); Triglycerides* 103 mg/dL (40-149)
[2022-08-06 07:49] LABS: Percent Iron Saturation 60 % (20-50); Total Iron Binding Capacity 368 ug/dL (265-497)
[2022-08-06 07:51] LABS: Troponin I* 0.02 ng/mL (0.01-0.04)
--- NOTE | 2022-08-06 08:00 | CRLHL7_ITS ---
For Patients: As a result of the Century Cures Act, medical imaging exams and procedure reports are released immediately into your electronic medical record. You may view this report before your referring provider. If you have questions, please contact your health care provider. INDICATION: Concern for cirrhosis TECHNIQUE: Ultrasound abdomen limited. Sonographic images of the right upper quadrant were obtained using lopez-scale and color Doppler images. COMPARISON: None. FINDINGS: Liver: Enlarged liver measuring up to 21 cm. Lobulated peripheral contour. No suspicious masses. No intrahepatic biliary dilatation. Main portal vein shows hepatofugal flow. Gallbladder: Surgically absent. Common bile duct: 5 mm. Pancreas: Partially obscured by bowel gas artifact. Visualized portions of the pancreatic body appear uniform. Right kidney: Normal in size. Normal echotexture and cortex. No suspicious masses, stones, or hydronephrosis. Vasculature: Proximal abdominal aorta and IVC are unremarkable. IMPRESSION: Lobulated peripheral contour of the liver concerning for cirrhotic morphology. Main portal vein shows flow reversal, raising suspicion for portal hypertension. Dictated by Sujit Curry MD @ 08/06/2022 8:22:32 AM (Electronically Signed)
[2022-08-06 08:05] LABS: NT Pro B Type NatriureticPept* 1050 pg/mL
[2022-08-06 08:41] LABS: Hemoglobin A1C* 4.4 % (0-5.6)
[2022-08-06] MEDS: MULTIVITAMIN/MINERALS 1 TABLET 1 TAB PO (08:45)
[2022-08-06] MEDS: FOLIC ACID 1 MG TABLET PO (08:45)
[2022-08-06] MEDS: SODIUM CHLORIDE 0.9 % (FLUSH) 10 ML SYRINGE 5 ML IVF ×3 (08:45→22:24)
[2022-08-06] MEDS: FUROSEMIDE 10 MG/ML inj 40 MG IVP ×2 (08:45→16:49)
[2022-08-06] MEDS: THIAMINE 250 MG in 0.9 % SODIUM CHLORIDE 100 ml 100 ML 102.5 MG IVPB (08:46)
--- NOTE | 2022-08-06 09:04 | P.IMPN_ITS ---
Progress Note: A&P Assessment and plan (1) Fever: Problem details: - noted 08/05-08/06 - given mild abdominal pain and high risk status for SBP, will empirically cover with Ceftriaxone - minimal ascites noted on abdominal ultrasound - blood cultures obtained and pending Status: Acute (2) Dyspnea: Problem details: - likely multifactorial; heart disease (murmur noted), tobacco use, anemia, self reported history of asthma - RT referral, TTE, nicotine replacement, diuretics, blood transfusion - currently stable on RA Status: Acute (3) Cirrhosis of liver: Problem details: - Bonacini cirrhosis discriminant score of 10, therefore high likelihood of cirrhosis; spider angiomata and icterus on physical exam - MELD 22 Status: Acute (4) Alcoholism: Problem details: - with resultant cirrhosis + lab abnormalities (thrombocytopenia, elevated LFTs, high bilirubin, elevated INR, anemia) - MELD 22 - transfuse 1U PRBCs 08/06 Status: Acute (5) Edema: Problem details: - likely combination of cardiac and hepatic disease - was on Bumex, Spironolactone, and Metolazone as an outpatient prior to stopping medications - on IV Lasix (08/05), add back in low dose Spironolactone (08/06) Status: Acute (6) Weakness: Problem details: - likely multifactorial given acute illness, ETOH use, anemia - therapies ordered Status: Acute Plan - blood transfusion followed by Lasix, TTE, abx - mechanical ppx + ambulation - therapies following - patient plans to discharge to a ETOH recovery home in [place], [place] when medically appropriate Subjective Date Seen: 08/06/22 Interval history: Tmax 100.8 overnight. Cora is still noting bilateral knee pain, also noting intermittent mild abdominal pain. No lightheadedness or dizziness with ambulation to and from the bathroom. She has no concerns for hospitalist team this morning; amenable to blood transfusion for Hgb <8. Exam Narrative: Exam Narrative: GEN: Alert and sitting up in bed, answering questions appropriately HEENT: EOMIs bilaterally, + scleral icterus CV: RRR, holosystolic murmur noted across precordium R: LCTA bilaterally without concerning wheezing Ab: soft, + distention, + fluid wave. Mild drainage from umbilicus c/w yeast dermatitis Ext: 3+ edema BLE, no open wounds or abrasions over knees Skin: scattered bruising on extremities Neuro: No focal deficits Psych: Appropriate Const: Vital Signs, click to edit/add: Vital Signs - 24 hr 08/05/22 13:44 08/05/22 18:39 08/05/22 18:47 Temperature 99.5 F 97.4 F L 97.9 F Pulse Rate Pulse Rate [Pulse Oximeter] Pulse Rate [Right Pulse Oximeter] 105 H 89 Respiratory Rate 23 24 24 Blood Pressure [Le ft Arm] 173/70 H Blood Pressure [Ri ght Arm] Blood Pressure [Ri ght Upper Arm] 170/70 H 132/74 Pulse Oximetry 100 96 96 Oxygen Delivery Me thod Room Air Room Air Room Air 08/05/22 18:47 08/05/22 21:00 08/05/22 21:45 Temperature Pulse Rate 92 Pulse Rate [Pulse Oximeter] 90 Pulse Rate [Right Pulse Oximeter] Respiratory Rate 24 20 Blood Pressure [Le ft Arm] Blood Pressure [Ri ght Arm] Blood Pressure [Ri ght Upper Arm] Pulse Oximetry 96 98 Oxygen Delivery Ny thod Room Air Room Air 08/05/22 22:00 08/06/22 00:13 08/06/22 00:14 Temperature 100.8 F H 100 F H Pulse Rate Pulse Rate [Pulse Oximeter] 94 91 Pulse Rate [Right Pulse Oximeter] Respiratory Rate 22 20 20 Blood Pressure [Le ft Arm] Blood Pressure [Ri ght Arm] 152/63 H 160/67 H Blood Pressure [Ri ght Upper Arm] Pulse Oximetry 95 95 95 Oxygen Delivery Me thod Room Air Room Air Room Air 08/06/22 00:17 08/06/22 00:26 08/06/22 03:00 Temperature 100 F H 100 F H Pulse Rate 97 Pulse Rate [Pulse Oximeter] 91 91 Pulse Rate [Right Pulse Oximeter] Respiratory Rate 20 20 Blood Pressure [Le ft Arm] Blood Pressure [Ri ght Arm] 160/67 H 140/68 H Blood Pressure [Ri ght Upper Arm] Pulse Oximetry 95 95 Oxygen Delivery Me thod Room Air Room Air 08/06/22 03:29 Temperature 100.1 F H Pulse Rate Pulse Rate [Pulse Oximeter] 91 Pulse Rate [Right Pulse Oximeter] Respiratory Rate 20 Blood Pressure [Le ft Arm] Blood Pressure [Ri ght Arm] 140/68 H Blood Pressure [Ri ght Upper Arm] Pulse Oximetry 95 Oxygen Delivery Me thod Room Air Labs Labs: Laboratory Results - last 24 hr 08/05/22 08/05/22 08/05/22 17:00 17:00 17:00 WBC 5.97 RBC 3.35 L Hgb 8.3 L Hct 27.4 L MCV 82 MCH 25 L MCHC 30 L RDW Coeff of Leanne 20.6 H Plt Count 78 L Neut % (Auto) 68.2 Lymph % (Auto) 24.0 [place] % (Auto) 5.9 Eos % (Auto) 0.7 Baso % (Auto) 0.7 Neut # (Auto) 4.08 Lymph # (Auto) 1.43 [place] # (Auto) 0.40 Eos # (Auto) 0.04 Baso # (Auto) 0.04 INR 1.76 H APTT 44 H VBG pH VBG pCO2 VBG pO2 VBG HCO3 Sodium 138 Potassium 3.5 L Chloride 108 Carbon Dioxide 23 BUN 12 Creatinine 0.6 Estimated Creat Clear 109.08 Estimated GFR 109 Glucose 104 Hemoglobin A1c Lactate 3.4 H Calcium 8.5 Phosphorus Magnesium 1.7 Cancelled Iron TIBC % Saturation Total Bilirubin 4.9 H Cancelled Direct Bilirubin 0.9 H AST ALT Alkaline Phosphatase Total Creatine Kinase Troponin I C-Reactive Protein NT-Pro-B Natriuret Pep Total Protein Albumin Triglycerides Cholesterol LDL Cholesterol, Calc HDL Cholesterol Lipase Vitamin B12 TSH Urine Color Urine Appearance Urine pH Ur Specific [place] Urine Protein Urine Glucose (UA) Urine Ketones Urine Blood Urine Nitrite Urine Bilirubin Urine Urobilinogen Ur Leukocyte Esterase Urine RBC Urine WBC Ur Squamous Epith Cells Urine Bacteria Urine Opiates Screen Ur Oxycodone Screen Urine Methadone Screen Ur Propoxyphene Screen Ur Barbiturates Screen U Tricyclic Antidepress Ur Phencyclidine Scrn Ur Amphetamines Screen U Methamphetamines Scrn U Benzodiazepines Scrn Urine Cocaine Screen U Marijuana (THC) Screen Ur Drug Screen Comment Ethyl Alcohol Lab Acknowledgement 08/05/22 08/05/22 08/05/22 17:00 17:00 17:00 WBC RBC Hgb Hct MCV MCH MCHC RDW Coeff of Leanne Plt Count Neut % (Auto) Lymph % (Auto) [place] % (Auto) Eos % (Auto) Baso % (Auto) Neut # (Auto) Lymph # (Auto) [place] # (Auto) Eos # (Auto) Baso # (Auto) INR APTT VBG pH VBG pCO2 VBG pO2 VBG HCO3 Sodium Potassium Chloride Carbon Dioxide BUN Creatinine Estimated Creat Clear Estimated GFR Glucose Hemoglobin A1c Lactate Calcium Phosphorus Magnesium Iron TIBC % Saturation Total Bilirubin Direct Bilirubin Cancelled AST 119 H Cancelled ALT 39 H Cancelled Alkaline Phosphatase 166 H Total Creatine Kinase Troponin I C-Reactive Protein NT-Pro-B Natriuret Pep Total Protein Albumin Triglycerides Cholesterol LDL Cholesterol, Calc HDL Cholesterol Lipase Vitamin B12 TSH Urine Color Urine Appearance Urine pH Ur Specific [place] Urine Protein Urine Glucose (UA) Urine Ketones Urine Blood Urine Nitrite Urine Bilirubin Urine Urobilinogen Ur Leukocyte Esterase Urine RBC Urine WBC Ur Squamous Epith Cells Urine Bacteria Urine Opiates Screen Ur Oxycodone Screen Urine Methadone Screen Ur Propoxyphene Screen Ur Barbiturates Screen U Tricyclic Antidepress Ur Phencyclidine Scrn Ur Amphetamines Screen U Methamphetamines Scrn U Benzodiazepines Scrn Urine Cocaine Screen U Marijuana (THC) Screen Ur Drug Screen Comment Ethyl Alcohol Lab Acknowledgement 08/05/22 08/05/22 08/05/22 17:00 17:00 17:00 WBC RBC Hgb Hct MCV MCH MCHC RDW Coeff of Leanne Plt Count Neut % (Auto) Lymph % (Auto) [place] % (Auto) Eos % (Auto) Baso % (Auto) Neut # (Auto) Lymph # (Auto) [place] # (Auto) Eos # (Auto) Baso # (Auto) INR APTT VBG pH VBG pCO2 VBG pO2 VBG HCO3 Sodium Potassium Chloride Carbon Dioxide BUN Creatinine Estimated Creat Clear Estimated GFR Glucose Hemoglobin A1c Lactate Calcium Phosphorus Magnesium Iron TIBC % Saturation Total Bilirubin Direct Bilirubin AST ALT Alkaline Phosphatase Cancelled Total Creatine Kinase Cancelled 713 H Troponin I 0.03 C-Reactive Protein 0.9 NT-Pro-B Natriuret Pep 857 Cancelled Total Protein 7.9 Albumin Triglycerides Cholesterol LDL Cholesterol, Calc HDL Cholesterol Lipase Vitamin B12 TSH Urine Color Urine Appearance Urine pH Ur Specific [place] Urine Protein Urine Glucose (UA) Urine Ketones Urine Blood Urine Nitrite Urine Bilirubin Urine Urobilinogen Ur Leukocyte Esterase Urine RBC Urine WBC Ur Squamous Epith Cells Urine Bacteria Urine Opiates Screen Ur Oxycodone Screen Urine Methadone Screen Ur Propoxyphene Screen Ur Barbiturates Screen U Tricyclic Antidepress Ur Phencyclidine Scrn Ur Amphetamines Screen U Methamphetamines Scrn U Benzodiazepines Scrn Urine Cocaine Screen U Marijuana (THC) Screen Ur Drug Screen Comment Ethyl Alcohol Lab Acknowledgement 08/05/22 08/05/22 08/05/22 17:00 17:00 17:00 WBC RBC Hgb Hct MCV MCH MCHC RDW Coeff of Leanne Plt Count Neut % (Auto) Lymph % (Auto) [place] % (Auto) Eos % (Auto) Baso % (Auto) Neut # (Auto) Lymph # (Auto) [place] # (Auto) Eos # (Auto) Baso # (Auto) INR APTT VBG pH VBG pCO2 VBG pO2 VBG HCO3 Sodium Potassium Chloride Carbon Dioxide BUN Creatinine Estimated Creat Clear Estimated GFR Glucose Hemoglobin A1c Lactate Calcium Phosphorus Magnesium Iron TIBC % Saturation Total Bilirubin Direct Bilirubin AST ALT Alkaline Phosphatase Total Creatine Kinase Troponin I C-Reactive Protein NT-Pro-B Natriuret Pep Total Protein Cancelled Albumin 3.8 Cancelled Triglycerides Cholesterol LDL Cholesterol, Calc HDL Cholesterol Lipase Vitamin B12 Cancelled TSH 2.050 Urine Color Urine Appearance Urine pH Ur Specific [place] Urine Protein Urine Glucose (UA) Urine Ketones Urine Blood Urine Nitrite Urine Bilirubin Urine Urobilinogen Ur Leukocyte Esterase Urine RBC Urine WBC Ur Squamous Epith Cells Urine Bacteria Urine Opiates Screen Ur Oxycodone Screen Urine Methadone Screen Ur Propoxyphene Screen Ur Barbiturates Screen U Tricyclic Antidepress Ur Phencyclidine Scrn Ur Amphetamines Screen U Methamphetamines Scrn U Benzodiazepines Scrn Urine Cocaine Screen U Marijuana (THC) Screen Ur Drug Screen Comment Ethyl Alcohol 0.15 H Cancelled Lab Acknowledgement Test Added 08/05/22 08/05/22 08/05/22 17:38 21:00 21:37 WBC RBC Hgb Hct MCV MCH MCHC RDW Coeff of Leanne Plt Count Neut % (Auto) Lymph % (Auto) [place] % (Auto) Eos % (Auto) Baso % (Auto) Neut # (Auto) Lymph # (Auto) [place] # (Auto) Eos # (Auto) Baso # (Auto) INR APTT VBG pH VBG pCO2 VBG pO2 VBG HCO3 Sodium Potassium Chloride Carbon Dioxide BUN Creatinine Estimated Creat Clear Estimated GFR Glucose Hemoglobin A1c Lactate Calcium Phosphorus Magnesium Iron TIBC % Saturation Total Bilirubin Direct Bilirubin AST ALT Alkaline Phosphatase Total Creatine Kinase Troponin I C-Reactive Protein NT-Pro-B Natriuret Pep Total Protein Albumin Triglycerides Cholesterol LDL Cholesterol, Calc HDL Cholesterol Lipase Vitamin B12 TSH Urine Color Dark yellow Urine Appearance Clear Urine pH 5.5 Ur Specific [place] 1.020 Urine Protein Negative Urine Glucose (UA) Negative Urine Ketones Negative Urine Blood Negative Urine Nitrite Negative Urine Bilirubin Negative Urine Urobilinogen 1.0 Ur Leukocyte Esterase Negative Urine RBC 0-2 Urine WBC 0-2 Ur Squamous Epith Cells Few Urine Bacteria None Urine Opiates Screen Negative Ur Oxycodone Screen Negative Urine Methadone Screen Negative Ur Propoxyphene Screen Negative Ur Barbiturates Screen Negative U Tricyclic Antidepress Negative Ur Phencyclidine Scrn Negative Ur Amphetamines Screen Negative U Methamphetamines Scrn Negative U Benzodiazepines Scrn Negative Urine Cocaine Screen Negative U Marijuana (THC) Screen Negative Ur Drug Screen Comment See Note Ethyl Alcohol Lab Acknowledgement Test Added New Spec Needed 08/05/22 08/06/22 22:06 06:14 WBC 4.82 RBC 3.06 L Hgb 7.5 L* Hct 25.0 L MCV 82 MCH 25 L MCHC 30 L RDW Coeff of Leanne 20.6 H Plt Count 71 L Neut % (Auto) 57.7 Lymph % (Auto) 31.7 [place] % (Auto) 8.1 Eos % (Auto) 1.7 Baso % (Auto) 0.6 Neut # (Auto) 2.78 Lymph # (Auto) 1.53 [place] # (Auto) 0.40 Eos # (Auto) 0.08 Baso # (Auto) 0.03 INR 1.90 H APTT VBG pH 7.465 H VBG pCO2 37 L VBG pO2 58.5 H VBG HCO3 27 Sodium 134 L Potassium 3.6 Chloride 105 Carbon Dioxide 25 BUN 12 Creatinine 0.5 Estimated Creat Clear 130.90 Estimated GFR 114 Glucose 110 Hemoglobin A1c 4.4 Lactate 1.4 Calcium 8.3 L Phosphorus 3.2 Magnesium 1.7 Iron 222 H TIBC 368 % Saturation 60 H Total Bilirubin 4.8 H Direct Bilirubin 0.8 H AST 104 H ALT 37 H Alkaline Phosphatase 146 Total Creatine Kinase Troponin I 0.02 C-Reactive Protein 1.0 NT-Pro-B Natriuret Pep 1050 Total Protein 7.1 Albumin 3.3 Triglycerides 103 Cholesterol 181 LDL Cholesterol, Calc 93 HDL Cholesterol 67 Lipase 113 Vitamin B12 809 TSH 6.160 H Urine Color Urine Appearance Urine pH Ur Specific [place] Urine Protein Urine Glucose (UA) Urine Ketones Urine Blood Urine Nitrite Urine Bilirubin Urine Urobilinogen Ur Leukocyte Esterase Urine RBC Urine WBC Ur Squamous Epith Cells Urine Bacteria Urine Opiates Screen Ur Oxycodone Screen Urine Methadone Screen Ur Propoxyphene Screen Ur Barbiturates Screen U Tricyclic Antidepress Ur Phencyclidine Scrn Ur Amphetamines Screen U Methamphetamines Scrn U Benzodiazepines Scrn Urine Cocaine Screen U Marijuana (THC) Screen Ur Drug Screen Comment Ethyl Alcohol Lab Acknowledgement
[2022-08-06] MEDS: ONDANSETRON ODT 4 MG TAB PO (12:47)
[2022-08-06] MEDS: OXYCODONE 5 MG TABLET PO ×2 (14:47→22:23)
--- NOTE | 2022-08-06 15:34 | PC.NURSE ---
Please see eMar for meds given on day shift. IV Thiamine in am. Zofran ODT once for 50 cc of emesis. CIWA scores did not trigger prn ativan. Oxycodone 5 mg PO for joint pain. Blood permit obtained and 1 unit of blood infused per TAR protocol. Please see transfusion VS. 40 mg of IV lasix this am yielded 2550 out in urine. Pt will need 1/2 hour VS post completion of blood and a dose of IV Lasix, thiamine dose changed to PO per pharmacist. Report to Neha Pepe RN for evening shift.
--- NOTE | 2022-08-06 15:41 | PC.SOCIAL ---
Pt. is set to go to [facility] in [place] @ [phone], fax# [phone] when medically stable. Pt.'s sister Kim states they have been talking to [facility] and they want copies of pt.'s paperwork sent when medically stable before pt. can be accepted. Pt. also does not have medical assistance and needs to fill out an MA application. manager administrative services to follow-up on this.
[2022-08-06] MEDS: cefTRIAXone 2 GM in 0.9 % SODIUM CHLORIDE Mini-bag 100 ML IVPB (17:36)
[2022-08-06 19:19] LABS: Hemoglobin* 8.3 gm/dL (12.0-16.0)
[2022-08-07] VITALS (7 sets, daily range): BP systolic 112–134; BP diastolic 46–89; PULSE 70–83; RESP 18–20; TEMP 36.6–36.9; O2SAT 96–99
[2022-08-07] MEDS: OXYCODONE 5 MG TABLET PO ×3 (03:55→20:46)
[2022-08-07] MEDS: ALBUTEROL INHALER 2 PUFF IH ×3 (03:55→20:47)
[2022-08-07] MEDS: OMEPRAZOLE 20 MG CAPSULE DR 40 MG PO (05:45)
--- NOTE | 2022-08-07 06:20 | PC.NURSE ---
SHIFT NOTE -: Pt A&O, pleasant and cooperative, up independent in room. Afebrile. Oxygen saturations in the high 90's on room air. Pt reports SOB with exertion, improves at rest, PRN Albuterol given x1 with pt reporting improvement. Pt denies CP and N/V. PRN Oxycodone given for pain with pt reporting relief.
[2022-08-07 06:52] LABS: Basophils Percent Auto 1.1 % (0.0-3.0); Eosinophils Percent Auto 7.8 % (0.0-7.0); Hematocrit 27.9 % (33.0-51.0); Hemoglobin* 8.5 gm/dL (12.0-16.0); Immature Granulocytes Pct Auto 0.5 %; Lymphocytes Percent Auto 32.3 % (20-44); Mean Corpuscular HGB Conc 31 gm/dL (32-36); Mean Corpuscular Hemoglobin 26 pg (26-34); Mean Corpuscular Volume 84 fL (80-100); Monocytes Percent Auto 7.3 % (0.0-11.0); Platelet Count* 71 K/uL (140-440); RDW Coefficient of Variation % 20.1 % (11.5-15.5); Red Blood Count 3.33 m/uL (4.00-5.20); White Blood Count* 4.36 K/uL (4.50-11.00)
[2022-08-07 07:00] LABS: Albumin* 3.2 g/dL (3.3-5.0); Chloride* 105 mmol/L (96-114); Sodium* 140 mmol/L (135-149)
[2022-08-07 07:01] LABS: INR 1.93 (0.91-1.10); Potassium* 3.2 mmol/L (3.6-5.1); Prothrombin Time 23.1 Seconds
[2022-08-07 07:02] LABS: Creatinine* 0.6 mg/dL (0.5-1.5); Est. Creatinine Clearance* 109.08; Estimated Glomerular Filt Rate 109 ml/min
[2022-08-07 07:03] LABS: Alkaline Phosphatase* 162 U/L (40-150); Aspartate Amino Transferase* 77 U/L (12-35); Bilirubin Direct* 0.7 mg/dL (0.0-0.5); Bilirubin Total* 4.2 mg/dL (0.1-1.5); Blood Urea Nitrogen* 12 mg/dL (7-30); Carbon Dioxide* 28 mmol/L (20-32); Glucose* 105 mg/dL (60-115)
[2022-08-07 07:04] LABS: Alanine Aminotransferase* 34 U/L (4-35); Calcium* 8.3 mg/dL (8.4-10.6); Magnesium* 1.7 mg/dL (1.5-2.6)
[2022-08-07 07:34] LABS: Slide Review Reflex Yes
[2022-08-07 07:37] LABS: Slide Review Acceptable Review (Acceptable)
[2022-08-07 07:39] LABS: Slide Review Reflex No
[2022-08-07] MEDS: MULTIVITAMIN/MINERALS 1 TABLET 1 TAB PO (09:18)
[2022-08-07] MEDS: THIAMINE 100 MG TABLET PO (09:18)
[2022-08-07] MEDS: SODIUM CHLORIDE 0.9 % (FLUSH) 10 ML SYRINGE 5 ML IVF ×2 (09:18→20:46)
[2022-08-07] MEDS: SPIRONOLACTONE 25 MG TABLET PO (09:18)
[2022-08-07] MEDS: FOLIC ACID 1 MG TABLET PO (09:18)
[2022-08-07] MEDS: FUROSEMIDE 10 MG/ML inj 40 MG IVP (09:19)
--- NOTE | 2022-08-07 10:56 | PC.SOCIAL ---
Met with pt. and filled out the online [employer] application. Pt. tentatively qualifies for medical assistance based on her application. They will follow-up with pt. Pt. signed a release of information to talk to [facility] in [place], [place]. Left a message @ [phone], with Cici in admissions who has been talking to pt.'s sister Cici. Updated her that pt. will likely be ready for discharge tomorrow and applied for MA. Discharge summary to be sent to [facility] when pt. is ready for discharge. Pt. may have to discharge home with her sister Kim until she can get into inpatient chemical dependency treatment.
--- NOTE | 2022-08-07 12:01 | PM.IMPN1 ---
Progress Note: A&P Assessment and plan (1) Fever: Problem details: - noted 08/05-08/06 - given mild abdominal pain and high risk status for SBP, empirically covering with Ceftriaxone - minimal ascites noted on abdominal ultrasound - blood cultures obtained and currently NGTD Status: Acute (2) Dyspnea: Problem details: - likely multifactorial; heart disease (murmur noted), tobacco use, anemia, self reported history of asthma - improved after diuresis - RT referral, nicotine replacement, diuretics, blood transfusion - currently stable on RA - TTE results below Final Impressions: 1. Normal left ventricular size, mildly increased wall thickness, hyperdynamic global systolic function, calculated EF of 74 %. Grade 2 pattern of LV diastolic filling. 2. Right ventricular cavity size is normal, global systolic RV function is normal. 3. Moderate biatrial enlargement. 4. The mitral valve is normal, trace mitral regurgitation. Mitral gradient slightly elevated at 5mmHg but likely due largely to hyperdynamic state and volume overload. Cannot fully rule out mild mitral stenosis. 5. No aortic stenosis, gradients increased due to increased LVOT velocity. 6. The inferior vena cava is dilated, respiratory size variation less than 50%. 7. Moderately increased estimated pulmonary pressures by tricuspid regurgitation velocity and right atrial pressure (45 mmHg plus RAP). Status: Acute (3) Cirrhosis of liver: Problem details: - noted on 08/06 ultrasound - MELD 22 Status: Acute (4) Alcoholism: Problem details: - with resultant cirrhosis + lab abnormalities (thrombocytopenia, elevated LFTs, high bilirubin, elevated INR, anemia) - per patient, last drink 08/04; ETOH level 0.15 on 08/05 - MELD 22 - transfused 1U PRBCs 08/06 Status: Acute (5) Edema: Problem details: - likely combination of cardiac and hepatic disease - was on Bumex, Spironolactone, and Metolazone as an outpatient prior to stopping medications - on IV Lasix (08/05-08/07) - added back in low dose Spironolactone 08/06, restart oral Bumex 08/07 Status: Acute (6) Weakness: Problem details: - likely multifactorial given acute illness, ETOH use, anemia - therapies ordered and following Status: Acute Plan - per above (transition to oral diuretics, follow electrolytes) - mechanical ppx and ambulation (pharmacological ppx deferred given elevated INR and thrombocytopenia) - will d/c home with sister if labs remain stable and blood cultures remain negative (possibly as early as tomorrow) Subjective Date Seen: 08/07/22 Interval history: Afebrile over the past 24 hours. Cora tolerated her blood transfusion well. Ambulating without dizziness or lightheadedness. Diuresing fairly well. CIWA scores have been negative. Exam Narrative: Exam Narrative: GEN: Alert and laying comfortably in bed HEENT: EOMIs bilaterally, no scleral icterus CV: RRR, No concerning murmurs, rubs, or gallops R: LCTA bilaterally without concerning wheezing, rales, or rhonchi Ext: 3+ edema BLE, + clubbing BUEs Skin: Mild jaundice, spider angiomata Neuro: No focal deficits, no resting tremor Psych: Appropriate Const: Vital Signs, click to edit/add: Vital Signs - 24 hr 08/06/22 12:14 08/06/22 12:14 08/06/22 12:14 Temperature 98.3 F 98.3 F 98.3 F Pulse Rate 86 Pulse Rate [Pulse Oximeter] 86 86 Respiratory Rate 20 20 20 Blood Pressure 114/71 Blood Pressure [Ri ght Arm] 114/71 114/71 Pulse Oximetry 99 99 99 Oxygen Delivery Me thod Room Air Room Air 08/06/22 12:59 08/06/22 13:59 08/06/22 15:11 Temperature 98.8 F 98.2 F 98.2 F Pulse Rate 84 85 85 Pulse Rate [Pulse Oximeter] Respiratory Rate 18 18 18 Blood Pressure 120/51 L 129/60 129/60 Blood Pressure [Ri ght Arm] Pulse Oximetry 98 98 98 Oxygen Delivery Me thod 08/06/22 15:50 08/06/22 15:50 08/06/22 15:50 Temperature 98.0 F 98.0 F Pulse Rate 85 Pulse Rate [Pulse Oximeter] 85 Respiratory Rate 18 18 18 Blood Pressure 134/68 Blood Pressure [Ri ght Arm] 134/68 Pulse Oximetry 97 97 97 Oxygen Delivery Me thod Room Air Room Air 08/06/22 15:50 08/06/22 16:15 08/06/22 18:00 Temperature 98.3 F Pulse Rate 82 Pulse Rate [Pulse Oximeter] 81 81 Respiratory Rate 18 18 Blood Pressure Blood Pressure [Ri ght Arm] 123/72 Pulse Oximetry 97 Oxygen Delivery Me thod Room Air 08/06/22 19:00 08/06/22 23:00 08/06/22 23:00 Temperature 98 F Pulse Rate Pulse Rate [Pulse Oximeter] 80 82 Respiratory Rate 24 22 Blood Pressure Blood Pressure [Ri ght Arm] 119/63 Pulse Oximetry 98 96 Oxygen Delivery Me thod Room Air Room Air 08/06/22 23:00 08/06/22 23:00 08/07/22 03:00 Temperature 98.3 F 98 F Pulse Rate 74 Pulse Rate [Pulse Oximeter] 82 78 Respiratory Rate 22 20 Blood Pressure Blood Pressure [Ri ght Arm] 141/75 H 134/69 Pulse Oximetry 96 99 Oxygen Delivery Me thod Room Air Room Air 08/07/22 03:00 08/07/22 07:00 08/07/22 07:00 Temperature 98 F 97.9 F Pulse Rate Pulse Rate [Pulse Oximeter] 78 74 Respiratory Rate 20 20 20 Blood Pressure Blood Pressure [Ri ght Arm] 134/69 112/89 Pulse Oximetry 99 99 99 Oxygen Delivery Me thod Room Air Room Air Room Air 08/07/22 07:00 08/07/22 07:00 08/07/22 07:00 Temperature 97.9 F Pulse Rate 70 Pulse Rate [Pulse Oximeter] 74 74 Respiratory Rate 20 20 Blood Pressure Blood Pressure [Ri ght Arm] 112/89 Pulse Oximetry 99 Oxygen Delivery Me thod Room Air Labs Labs: Laboratory Results - last 24 hr 08/06/22 08/06/22 08/07/22 09:11 19:03 05:37 WBC 4.36 L RBC 3.33 L Hgb 8.3 L 8.5 L Hct 27.9 L MCV 84 MCH 26 MCHC 31 L RDW Coeff of Leanne 20.1 H Plt Count 71 L Neut % (Auto) 51.0 Lymph % (Auto) 32.3 [place] % (Auto) 7.3 Eos % (Auto) 7.8 H Baso % (Auto) 1.1 Neut # (Auto) 2.20 Lymph # (Auto) 1.40 [place] # (Auto) 0.30 Eos # (Auto) 0.30 Baso # (Auto) 0.00 Diff Slide Review Acceptable Review INR 1.93 H Sodium 140 Potassium 3.2 L Chloride 105 Carbon Dioxide 28 BUN 12 Creatinine 0.6 Estimated Creat Clear 109.08 Estimated GFR 109 Glucose 105 Calcium 8.3 L Magnesium 1.7 Total Bilirubin 4.2 H Direct Bilirubin 0.7 H AST 77 H ALT 34 Alkaline Phosphatase 162 H Total Protein 7.0 Albumin 3.2 L Crossmatch ([facility]) See Detail
--- NOTE | 2022-08-07 12:51 | PC.NURSE ---
patient empties the hat herself so unsure how much she has voided
--- NOTE | 2022-08-07 13:14 | PC.NURSE ---
End of Shift Note: Patient has been up indep in her room. She is up frequently to void and she has been emptying the hat herself so unsure what her current output is. She has received a dose of oxycodone for her chronic pain and also placed a warm blanket around her neck to see if she would get any more relief with this. Otherwise will continue to monitor until next shift arrives.
[2022-08-07] MEDS: POTASSIUM CHLORIDE 10 MEQ CAPSULE ER 40 MEQ PO (13:55)
[2022-08-07] MEDS: BUMETANIDE 1 MG TABLET PO (13:55)
[2022-08-07] MEDS: cefTRIAXone 2 GM in 0.9 % SODIUM CHLORIDE Mini-bag 100 ML IVPB (17:03)
--- NOTE | 2022-08-07 18:39 | PC.NURSE ---
shift note: pt up indept to bathroom. pt states her knees hurt. Pt requesting to visit for clarification of current diagnosis. IV patent. LS clr. vss stable.
[2022-08-07 19:10] LABS: Folate, Serum 10.2 ng/mL (>=5.9)
[2022-08-07] MEDS: ACETAMINOPHEN 325 MG TABLET 650 MG PO (23:20)
--- NOTE | 2022-08-07 23:33 | PC.NURSE ---
End of shift [id number]: Pt A&O. VSS and sats >90% on RA. Pr complains of neck pain 08/26. PRN oxycodone given w/ stated relief. SBA to BR. Tolerating diet.Pt resting for most of shift.
[2022-08-08] VITALS (7 sets, daily range): BP systolic 114–130; BP diastolic 48–68; PULSE 68–72; RESP 12–18; TEMP 36.5–36.9; O2SAT 95–98
[2022-08-08] MEDS: OXYCODONE 5 MG TABLET PO ×3 (00:35→20:30)
[2022-08-08] MEDS: ALBUTEROL INHALER 2 PUFF IH ×3 (05:46→21:10)
--- NOTE | 2022-08-08 05:50 | PC.NURSE ---
Patient alert and oriented x 4. Pain reported to neck, back, knees and buttocks. PRN tylenol ineffective, patient received prn oxycodone at 0040 and was effective for pain until 0330. Patient requested heating pad, Aqua k pad used and patient reporting that it is helping her neck pain be manageable. Lung sounds clear, diminished in bases, Cora reporting shortness of breath at 0535 and requested inhaler. Bowel sounds active x 4 quadrants. Main wraps removed for 1 hours this shift then reapplied. BLE continue to be edematous, 3+ pitting edema. Periorbital edema continues as well as generalized facial edema and generalized body edema. Requested protein shake x 2, drank both bottles. Slept on and off throughout the night.
[2022-08-08] MEDS: OMEPRAZOLE 20 MG CAPSULE DR 40 MG PO (06:44)
[2022-08-08 06:49] LABS: Basophils Percent Auto 0.9 % (0.0-3.0); Hematocrit 27.8 % (33.0-51.0); Hemoglobin* 8.4 gm/dL (12.0-16.0); Immature Granulocytes Pct Auto 0.2 %; Lymphocytes Percent Auto 35.5 % (20-44); Mean Corpuscular HGB Conc 30 gm/dL (32-36); Mean Corpuscular Hemoglobin 26 pg (26-34); Mean Corpuscular Volume 84 fL (80-100); Monocytes Percent Auto 6.9 % (0.0-11.0); Neutrophils Percent Auto 48.5 % (42.0-72.0); Platelet Count* 84 K/uL (140-440); RDW Coefficient of Variation % 20.1 % (11.5-15.5); White Blood Count* 4.48 K/uL (4.50-11.00)
[2022-08-08 07:01] LABS: Albumin* 3.1 g/dL (3.3-5.0); Chloride* 103 mmol/L (96-114)
[2022-08-08 07:02] LABS: Potassium* 3.8 mmol/L (3.6-5.1); Sodium* 138 mmol/L (135-149)
[2022-08-08 07:04] LABS: Aspartate Amino Transferase* 57 U/L (12-35); Bilirubin Direct* 0.6 mg/dL (0.0-0.5); Bilirubin Total* 3.1 mg/dL (0.1-1.5); Blood Urea Nitrogen* 13 mg/dL (7-30); Carbon Dioxide* 27 mmol/L (20-32); Creatinine* 0.7 mg/dL (0.5-1.5); Estimated Glomerular Filt Rate 105 ml/min; Total Protein* 6.7 g/dL (6.0-8.3)
[2022-08-08 07:05] LABS: Alanine Aminotransferase* 29 U/L (4-35); Alkaline Phosphatase* 149 U/L (40-150); Calcium* 8.5 mg/dL (8.4-10.6); Glucose* 138 mg/dL (60-115)
[2022-08-08 07:07] LABS: INR 1.74 (0.91-1.10); Prothrombin Time 21.3 Seconds
[2022-08-08 07:10] LABS: Slide Review Reflex Yes
[2022-08-08 07:11] LABS: Slide Review Acceptable Review (Acceptable)
--- NOTE | 2022-08-08 07:46 | P.IMPN_ITS ---
Progress Note: A&P Assessment and plan (1) Fever: Problem details: - noted 08/05-08/06 - given mild abdominal pain and high risk status for SBP, empirically covered with Ceftriaxone (08/06), discontinued on 08/08 given reassuring exam, VS, cultures - minimal ascites noted on abdominal ultrasound - blood cultures from admission remain NGTD Status: Acute (2) Dyspnea: Problem details: - likely multifactorial; heart disease (murmur noted), h/o tobacco use, anemia, self reported history of asthma - improved upon admission after diuresis, remains stable on RA - RT referral, diuretics, blood transfusion on 08/06 - TTE results below Final Impressions: 1. Normal left ventricular size, mildly increased wall thickness, hyperdynamic global systolic function, calculated EF of 74 %. Grade 2 pattern of LV diastolic filling. 2. Right ventricular cavity size is normal, global systolic RV function is normal. 3. Moderate biatrial enlargement. 4. The mitral valve is normal, trace mitral regurgitation. Mitral gradient slightly elevated at 5mmHg but likely due largely to hyperdynamic state and volume overload. Cannot fully rule out mild mitral stenosis. 5. No aortic stenosis, gradients increased due to increased LVOT velocity. 6. The inferior vena cava is dilated, respiratory size variation less than 50%. 7. Moderately increased estimated pulmonary pressures by tricuspid regurgitation velocity and right atrial pressure (45 mmHg plus RAP). Status: Acute (3) Cirrhosis of liver: Problem details: - noted on 08/06 ultrasound - MELD 22 Status: Acute (4) Alcoholism: Problem details: - with resultant cirrhosis + lab abnormalities (thrombocytopenia, elevated LFTs, high bilirubin, elevated INR, anemia) - per patient, last drink 08/04; ETOH level 0.15 on 08/05 - MELD 22 - transfused 1U PRBCs 08/06 Status: Acute (5) Edema: Problem details: - likely combination of cardiac and hepatic disease - was on Bumex, Spironolactone, and Metolazone as an outpatient prior to stopping medications - on IV Lasix (08/05-08/07) - added back in Spironolactone 08/06, transitioned to oral Bumex 08/07 Status: Acute (6) Weakness: Problem details: - likely multifactorial given acute illness, ETOH use, anemia - therapies ordered and following Status: Acute (7) Eustachian tube dysfunction: Problem details: - R TM retracted and painful 08/08, treat with short course of Afrin Status: Acute Plan - per above - walking and mechanical prophylaxis (pharmacologic ppx contraindicated given thrombocytopenia) - patient accepted to [facility] in [place], [place] for 08/09, will be medically appropriate for d/c with family transferring Subjective Date Seen: 08/08/22 Interval history: Cora remains afebrile with reassuring VS and no evidence of ETOH withdrawal. She has some R ear pain today, no other concerns for hospitalist team. Diuresing well - down 6kg from admission and tolerating medications. Exam Narrative: Exam Narrative: GEN: Alert and answering questions appropriately HEENT: Normal external ears, L TM normal, R TM retracted without erythema, + mild scleral icterus CV: RRR, holosystolic murmur, unchanged R: LCTA bilaterally without concerning wheezing, air movement adequate Ab: fluid wave less pronounced today Ext: Clubbing noted of fingers bilaterally, 3+ edema BLE Skin: No concerning skin lesions or rashes on exposed skin Neuro: No focal deficits, no resting tremor Psych: Appropriate Const: Vital Signs, click to edit/add: Vital Signs - 24 hr 08/07/22 15:00 08/07/22 15:00 08/07/22 17:06 Temperature 98.4 F Pulse Rate 83 Pulse Rate [Pulse Oximeter] 82 Respiratory Rate 18 18 Blood Pressure [Ri ght Arm] 132/63 Pulse Oximetry 96 96 Oxygen Delivery Me thod Room Air Room Air 08/07/22 19:00 08/07/22 23:00 08/07/22 23:00 Temperature 98.1 F 98.0 F Pulse Rate Pulse Rate [Pulse Oximeter] 75 71 Respiratory Rate 18 18 Blood Pressure [Ri ght Arm] 114/46 L 113/57 L Pulse Oximetry 97 96 96 Oxygen Delivery Me thod Room Air Room Air Room Air 08/07/22 23:58 08/08/22 03:00 Temperature 98.3 F Pulse Rate 73 Pulse Rate [Pulse Oximeter] 68 Respiratory Rate 16 Blood Pressure [Ri ght Arm] 118/68 Pulse Oximetry 95 Oxygen Delivery Me thod Room Air Labs Labs: Laboratory Results - last 24 hr 08/05/22 08/08/22 22:06 06:00 WBC 4.48 L RBC 3.30 L Hgb 8.4 L Hct 27.8 L MCV 84 MCH 26 MCHC 30 L RDW Coeff of Leanne 20.1 H Plt Count 84 L Neut % (Auto) 48.5 Lymph % (Auto) 35.5 [place] % (Auto) 6.9 Eos % (Auto) 8.0 H Baso % (Auto) 0.9 Neut # (Auto) 2.20 Lymph # (Auto) 1.60 [place] # (Auto) 0.30 Eos # (Auto) 0.40 Baso # (Auto) 0.00 Diff Slide Review Acceptable Review INR 1.74 H Sodium 138 Potassium 3.8 Chloride 103 Carbon Dioxide 27 BUN 13 Creatinine 0.7 Estimated Creat Clear 93.50 Estimated GFR 105 Glucose 138 H Calcium 8.5 Total Bilirubin 3.1 H Direct Bilirubin 0.6 H AST 57 H ALT 29 Alkaline Phosphatase 149 Total Protein 6.7 Albumin 3.1 L RBC Fol Brenda for Serum 10.2
[2022-08-08] MEDS: FERROUS SULFATE 325 MG TABLET PO (08:30)
[2022-08-08] MEDS: ACETAMINOPHEN 325 MG TABLET 650 MG PO (08:30)
[2022-08-08] MEDS: SPIRONOLACTONE 25 MG TABLET PO ×2 (08:30→10:22)
[2022-08-08] MEDS: MULTIVITAMIN/MINERALS 1 TABLET 1 TAB PO (08:30)
[2022-08-08] MEDS: THIAMINE 100 MG TABLET PO (08:30)
[2022-08-08] MEDS: BUMETANIDE 1 MG TABLET PO ×2 (08:30→14:00)
[2022-08-08] MEDS: FOLIC ACID 1 MG TABLET PO (08:30)
[2022-08-08] MEDS: SODIUM CHLORIDE 0.9 % (FLUSH) 10 ML SYRINGE 5 ML IVF ×2 (08:31→20:31)
[2022-08-08] MEDS: OXYMETAZOLINE 0.05% NASAL SPRAY 1 SPRAY NOSTRIL-B ×2 (08:34→20:31)
--- NOTE | 2022-08-08 09:04 | PC.SOCIAL ---
Faxed pt.'s MARK to [facility] to Cici at [phone], . Gave pt. Cici's contact information so they can initiate the referral for Tx and the phone number to [facility] [employer] to request a Rule 25 assessment. Updated pt.'s sister Zehra.
[2022-08-08] MEDS: ONDANSETRON ODT 4 MG TAB PO (10:22)
[2022-08-08] MEDS: SENNOSIDES/DOCUSATE TABLET 1 TAB PO (10:23)
--- NOTE | 2022-08-08 13:50 | PC.SOCIAL ---
Updated Cici at [facility] @ [phone], fax# [phone] that non-emergency EMS will be set up for 9am as a back-up if pt.'s sister cannot transport. Still unable to reach pt.'s sister Kim who is at work.
--- NOTE | 2022-08-08 15:17 | PC.SOCIAL ---
Pt.'s sister will transport pt. to [facility] and will arrive at 10am. Meds are to be sent to [facility] in [facility] at phone# [phone]. Updated Cici at [facility] @ [phone], fax# [phone].
--- NOTE | 2022-08-08 16:41 | PC.NURSE ---
Pt alert and oriented. Pt IND in room. VSS. Pt has had pain ranging from 6-7. See EMAR for intervention. Pt had some nausea; see EMAR for intervention. Telemetry box discontinued. Plan is for Pt to discharge 08/09 to a rehabilitation center in [place], [place]. ? ?
--- NOTE | 2022-08-08 20:06 | PC.NURSE ---
Call received from forensic social worker verifying that Sister would be able to transport patient tomorrow morning to the [facility] in [place]. Pharmacy was updated in the computer to [facility] for dicharge. Called EMS to cancel non-emergent transport for the morning.
--- NOTE | 2022-08-08 22:32 | PC.NURSE ---
End of shift [id number]: PT A&O. Pleasant and cooperative. VSS and on RA w/ sats >90%. Pt has had pain, rating it 7/10. PRN oxycodone given with stated relief. Ind in room. Plan do d/c on 08/09 to rehab center.
[2022-08-09 03:00] VITALS: BP 111/52; PULSE 70; RESP 14; TEMP 36.8; O2SAT 94
--- NOTE | 2022-08-09 07:03 | PC.NURSE ---
END OF SHIFT NOTE: PT PLEASANT AND COOPERATIVE. A&Ox3. DENIES CP, SOB, N/V. AMBULATES INDEPENDENTLY WITH WALKER. VSS ON RA; AFEBRILE. BLE WRAPPED WITH EDDIE WRAPS @[facility]. BED ALARM ON AND CALL LIGHT WITHIN PT?S REACH. UNEVENTFUL NIGHT. PT TO DC 08/09 TO [facility] IN [place], [place]; FAMILY PROVIDING TRANSPORTATION.
[2022-08-09 07:11] LABS: Basophils Absolute Auto 0.05 K/uL (0.00-0.30); Eosinophils Percent Auto 6.2 % (0.0-7.0); Hematocrit 28.2 % (33.0-51.0); Hemoglobin* 8.5 gm/dL (12.0-16.0); Immature Granulocytes Abs Auto 0.01 K/uL (0.00-0.30); Immature Granulocytes Pct Auto 0.2 %; Lymphocytes Absolute Auto 1.72 K/uL (0.90-2.90); Lymphocytes Percent Auto 35.6 % (20-44); Mean Corpuscular HGB Conc 30 gm/dL (32-36); Mean Corpuscular Hemoglobin 26 pg (26-34); Mean Corpuscular Volume 85 fL (80-100); Monocytes Percent Auto 8.1 % (0.0-11.0); Neutrophils Absolute Auto 2.36 K/uL (1.7-7.0); Neutrophils Percent Auto 48.9 % (42.0-72.0); Platelet Count* 94 K/uL (140-440); RDW Coefficient of Variation % 21.3 % (11.5-15.5); Red Blood Count 3.31 m/uL (4.00-5.20); White Blood Count* 4.83 K/uL (4.50-11.00)
[2022-08-09 07:15] LABS: Slide Review Reflex No
[2022-08-09 07:21] LABS: Albumin* 3.2 g/dL (3.3-5.0); Chloride* 101 mmol/L (96-114); Sodium* 138 mmol/L (135-149)
[2022-08-09 07:22] LABS: Potassium* 3.9 mmol/L (3.6-5.1)
[2022-08-09 07:24] LABS: Alanine Aminotransferase* 27 U/L (4-35); Alkaline Phosphatase* 160 U/L (40-150); Aspartate Amino Transferase* 53 U/L (12-35); Bilirubin Total* 2.8 mg/dL (0.1-1.5); Blood Urea Nitrogen* 16 mg/dL (7-30); Carbon Dioxide* 33 mmol/L (20-32); Creatinine* 0.7 mg/dL (0.5-1.5); Estimated Glomerular Filt Rate 105 ml/min; Total Protein* 6.9 g/dL (6.0-8.3)
[2022-08-09 07:25] LABS: Calcium* 8.5 mg/dL (8.4-10.6); Glucose* 91 mg/dL (60-115)
[2022-08-09 07:37] VITALS: BP 112/44; PULSE 71; RESP 16; TEMP 36.5; O2SAT 95
[2022-08-09] MEDS: OMEPRAZOLE 20 MG CAPSULE DR 40 MG PO (07:38)
[2022-08-09] MEDS: ALBUTEROL INHALER 2 PUFF IH (09:04)
[2022-08-09] MEDS: MULTIVITAMIN/MINERALS 1 TABLET 1 TAB PO (09:04)
[2022-08-09] MEDS: SPIRONOLACTONE 25 MG TABLET 50 MG PO (09:04)
[2022-08-09] MEDS: THIAMINE 100 MG TABLET PO (09:04)
[2022-08-09] MEDS: OXYMETAZOLINE 0.05% NASAL SPRAY 1 SPRAY NOSTRIL-B (09:04)
[2022-08-09] MEDS: FOLIC ACID 1 MG TABLET PO (09:04)
[2022-08-09] MEDS: BUMETANIDE 1 MG TABLET PO (09:04)
[2022-08-09] MEDS: FERROUS SULFATE 325 MG TABLET PO (09:05)
[2022-08-09] MEDS: ONDANSETRON ODT 4 MG TAB PO (09:20)
[2022-08-09] MEDS: OXYCODONE 5 MG TABLET PO (09:20)
--- NOTE | 2022-08-09 09:20 | PM.DS1 ---
DS: Providers Provider Date Seen: 08/09/22 Date of admission: 08/05/22 20:02 Primary care physician: Not a Local Provider Admitting Clinician: Gerson Walls MD Consults: PT, OT, SW, Nutrition Attending Physician on discharge: Aydee Amos MD Date of Discharge: 08/09/22 DS: Diagnosis Discharge Diagnosis (1) Fever: Status: Acute Problem details: - noted 08/05-08/06 (Tmax 100.8), no other symptoms, no recurrence - given mild abdominal pain and high risk status for SBP, empirically covered with Ceftriaxone (08/06), discontinued on 08/08 given reassuring exam, VS, cultures - minimal ascites noted on abdominal ultrasound - blood cultures from admission remain NGTD (2) Dyspnea: Status: Acute Problem details: - likely multifactorial; heart disease (murmur noted), h/o tobacco use, anemia, self reported history of asthma - improved upon admission after diuresis, remains stable on RA - RT referral, diuretics, blood transfusion on 08/06 - TTE results below Final Impressions: 1. Normal left ventricular size, mildly increased wall thickness, hyperdynamic global systolic function, calculated EF of 74 %. Grade 2 pattern of LV diastolic filling. 2. Right ventricular cavity size is normal, global systolic RV function is normal. 3. Moderate biatrial enlargement. 4. The mitral valve is normal, trace mitral regurgitation. Mitral gradient slightly elevated at 5mmHg but likely due largely to hyperdynamic state and volume overload. Cannot fully rule out mild mitral stenosis. 5. No aortic stenosis, gradients increased due to increased LVOT velocity. 6. The inferior vena cava is dilated, respiratory size variation less than 50%. 7. Moderately increased estimated pulmonary pressures by tricuspid regurgitation velocity and right atrial pressure (45 mmHg plus RAP). (3) Cirrhosis of liver: Status: Acute Problem details: - noted on 08/06 ultrasound (4) Alcoholism: Status: Acute Problem details: - with resultant cirrhosis + lab abnormalities (thrombocytopenia, elevated LFTs, high bilirubin, elevated INR, anemia) - per patient, last drink 08/04; ETOH level 0.15 on 08/05, no significant withdrawal symptoms during hospitalization - MELD 22 - transfused 1U PRBCs 08/06, discharge Hgb 8.5 (5) Edema: Status: Acute Problem details: - likely combination of cardiac and hepatic disease - was on Bumex, Spironolactone, and Metolazone as an outpatient prior to stopping medications - on IV Lasix (08/05-08/07) - added back in Spironolactone (50mg Qd) 08/06, transitioned to oral Bumex (1mg BID) 08/07 (6) Weakness: Status: Acute Problem details: - likely multifactorial given acute illness, ETOH use, anemia - therapies ordered and followed during stay (7) Eustachian tube dysfunction: Status: Acute Problem details: - R TM retracted and painful 08/08, no evidence of acute infection, responded to short course of Afrin DS: Summary Hospital Course Hospital Course: Cora is a 52-year-old female who presented to the hospital after a fall at home with resultant weakness, in the setting of alcohol overuse. Patient recently moved to the area and has been off her home medications, which included high-dose diuresis for chronic lower extremity edema. Admission imaging revealed no acute injuries, labs consistent with sequela of chronic alcohol use (thrombocytopenia, elevated AST, elevated bilirubin, elevated INR, anemia requiring transfusion of 1U PRBCs), improved during stay. Ultrasound c/w cirrhosis. Had fever x1 on 08/05, treated with Rocephin x2 days, discontinued given reassuring clinical picture. Labs remained stable and BCx NGTD. Diuretics restarted (discharging on Bumex 1mg BID and Spironolactone 50mg Qd) and Cora diuresed well with stable electrolytes. She is down 6kg upon discharge. Patient medically appropriate for discharge on 08/09: accepted at [facility] in [place], [place]; sister will transport her there upon discharge this morning. Recommend close PCP f/u locally with GI referral upon discharge from treatment. Status at Discharge Functional status at discharge: uses cane/walker Overall status at discharge: patient is progressing back to baseline Time Spent with Patient Time attestation: Total time spent providing and/or coordinating discharge services: Time spent: Greater than 30 minutes Specific discharge activities: medication reconciliation, transport discussion, care coordination Exam Narrative: Exam Narrative: GEN: Alert HEENT: Normal external ears, EOMIs bilaterally, mild scleral icterus (improved from admission) CV: RRR, holosystolic murmur, unchanged R: LCTA bilaterally without concerning wheezing, air movement adequate Ab: soft, nontender Ext: 2-3+ edema BLE, improved from admission Skin: Scattered bruising on extremities Neuro: No focal deficits Psych: Appropriate Const: Vital Signs, click to edit/add: Vital Signs - 24 hr 08/08/22 11:15 08/08/22 14:56 08/08/22 14:56 Temperature 98.0 F 98.1 F Pulse Rate [Pulse Oximeter] 70 70 Respiratory Rate 16 16 16 Blood Pressure [Ri ght Arm] 114/48 L 114/48 L Pulse Oximetry 95 96 96 Oxygen Delivery Me thod Room Air Room Air 08/08/22 19:00 08/08/22 23:00 08/08/22 23:00 Temperature 98.4 F Pulse Rate [Pulse Oximeter] 72 68 Respiratory Rate 16 12 12 Blood Pressure [Ri ght Arm] 130/53 L Pulse Oximetry 96 95 Oxygen Delivery Me thod Room Air Room Air 08/08/22 23:00 08/09/22 03:00 08/09/22 07:37 Temperature 98.1 F 98.2 F Pulse Rate [Pulse Oximeter] 68 70 Respiratory Rate 12 14 16 Blood Pressure [Ri ght Arm] 120/62 111/52 L Pulse Oximetry 95 94 95 Oxygen Delivery Me thod Room Air Room Air Room Air 08/09/22 07:37 Temperature 97.7 F Pulse Rate [Pulse Oximeter] 71 Respiratory Rate 16 Blood Pressure [Ri ght Arm] 112/44 L Pulse Oximetry 95 Oxygen Delivery Me thod Room Air DS: Data Data Completed and Pending Labs on day of discharge: Labs from last 24 hours 08/09/22 06:15 WBC 4.83 RBC 3.31 L Hgb 8.5 L Hct 28.2 L MCV 85 MCH 26 MCHC 30 L RDW Coeff of Leanne 21.3 H Plt Count 94 L Neut % (Auto) 48.9 Lymph % (Auto) 35.6 [place] % (Auto) 8.1 Eos % (Auto) 6.2 Baso % (Auto) 1.0 Neut # (Auto) 2.36 Lymph # (Auto) 1.72 [place] # (Auto) 0.40 Eos # (Auto) 0.30 Baso # (Auto) 0.05 Sodium 138 Potassium 3.9 Chloride 101 Carbon Dioxide 33 H BUN 16 Creatinine 0.7 Estimated Creat Clear 93.50 Estimated GFR 105 Glucose 91 Calcium 8.5 Total Bilirubin 2.8 H AST 53 H ALT 27 Alkaline Phosphatase 160 H Total Protein 6.9 Albumin 3.2 L Preliminary micro results at discharge 08/05/22 20:32 Blood Culture - Preliminary Blood NO GROWTH AFTER 72 HOURS 08/05/22 20:24 Blood Culture - Preliminary Blood NO GROWTH AFTER 72 HOURS Discharge Plan Discharge Disposition: Home w/ Parent or Adult Date of Admission: 08/05/22 20:02 Attending Provider on Discharge: Aydee Amos Primary Care Provider: Provider,Not a Local Condition: Improved Anticipated Discharge Date/Time: 08/09/22 07:00 Discharge Medications: New acetaminophen 325 mg Tablet 650 mg PO Q8H PRNQty: 30 0RF sennosides-docusate sodium [Stool Softener-Laxative] 8.6-50 mg Tablet 1 tab PO DAILY PRNQty: 30 0RF spironolactone 25 mg Tablet 50 mg PO DAILY Qty: 30 0RF omeprazole 20 mg Capsule,Delayed Release(Dr/Ec) 40 mg PO DAILY@0700 Qty: 30 0RF bumetanide 1 mg Tablet 1 mg PO BID@09,14 Qty: 60 0RF folic acid 1 mg Tablet 1 mg PO DAILY Qty: 30 0RF albuterol sulfate [Ventolin HFA] 90 mcg/actuation Hfa Aerosol Inhaler 2 puff inhalation Q4H PRNQty: 8.5 0RF ondansetron 4 mg Tablet,Disintegrating 4 mg PO Q6H PRNQty: 20 0RF thiamine mononitrate (vit B1) [Vitamin B-1 (mononitrate)] 100 mg Tablet 100 mg PO DAILY Qty: 30 0RF multivitamin with folic acid [Thera] 400 mcg Tablet 1 tab PO DAILY Qty: 30 0RF Discharge Orders: Discharge Order (Routine); Ordered 08/09/22 Ordered By: Adyee Amos Patient Education: Spironolactone (By mouth), Bumetanide (By mouth), Acetaminophen (By mouth), Albuterol (By breathing), Omeprazole (By mouth), Thiamine (By mouth), Folic Acid (By mouth), Laxative, Stool Softeners (By mouth), Multivitamins, Adult Formula (By mouth), Ondansetron (By mouth), Cirrhosis of the Liver (DC) Additional Instructions: After your stay in [place], consider establishing care at the [facility] - either Dr. Duran or Dr. Cornell would be a good fit. They can refer you to Dr. Rios (the GI doctor who also works in that clinic). I only sent in one month of medication, but you should stay on all of them long-term. Activity Level: Activity as Tolerated and No strenuous activity Discharge Diet: 2 gm Sodium Follow Up Appointments: Provider,Not a Local [Primary Care Provider] - Forms: MyHealth Info Instructions
--- NOTE | 2022-08-09 11:04 | PC.NURSE ---
Pt alert and oriented. Pt independent in room. Pt had some nausea see EMAR for intervention. Pt had pain of 6 see EMAR for intervention. Pt discharged with sister who will transport to [facility] patient rehab in [place], [place].
== END 2022-08-09 10:00 | disposition home or self-care (01) | DRG 280 ==
LOC: ED 17:05 → MEDSURG 18:44
PROVIDERS: Family Medicine; Admitting Provider Internal Medicine; Emergency Provider Family Medicine; Visit Provider Internal Medicine
DX: K70.31 Alcoholic cirrhosis of liver with ascites (principal); F10.239 Alcohol dependence with withdrawal, unspecified; F10.229 Alcohol dependence with intoxication, unspecified; Y90.6 Blood alcohol level of 120-199 mg/100 ml; D64.9 Anemia, unspecified; E86.0 Dehydration; R50.9 Fever, unspecified; R10.9 Unspecified abdominal pain; R06.00 Dyspnea, unspecified; M62.82 Rhabdomyolysis; D69.6 Thrombocytopenia, unspecified; R60.9 Edema, unspecified; J45.909 Unspecified asthma, uncomplicated; R04.0 Epistaxis; R31.9 Hematuria, unspecified; R53.1 Weakness; R26.89 Other abnormalities of gait and mobility; E66.9 Obesity, unspecified; W18.30XA Fall on same level, unspecified, initial encounter; E55.9 Vitamin D deficiency, unspecified; Y92.002 Bathroom of unspecified non-institutional (private) residence as the place of occurrence of the external cause; Z98.84 Bariatric surgery status; F17.210 Nicotine dependence, cigarettes, uncomplicated; R01.1 Cardiac murmur, unspecified; H69.91 Unspecified Eustachian tube disorder, right ear; M25.562 Pain in left knee; M25.561 Pain in right knee; I51.7 Cardiomegaly; Z68.42 Body mass index [BMI] 45.0-49.9, adult
CPT/HCPCS: 36415; 36430; 71045; 73560; 76705; 80048; 80053; 80061; 80076; 80306; 81001; 82077; 82550; 82607; 82746; 82803; 83036; 83540; 83550; 83605; 83690; 83735; 83880; 84100; 84443; 84484; 85018; 85025; 85610; 85730; 86140; 86850; 86900; 86901; 86922; 87040; 93005; 93306; 97110; 97116; 97162; 97165; 97535; 99284; 99285; A9153; A9270; J0696; J1940; J2060; J3411; P9016